=== PATIENT | female | born 1955 | race Caucasian/White ===

== ENCOUNTER 2020-04-26 09:43 | Emergency (ER) | payer MEDICARE, SELFPAY ==
--- NOTE | ~2020-04-26 | CT_ITS ---
EXAMINATION: CT abdomen pelvis w con EXAM DATE: 04/26/2020 11:40 INDICATION: Right lower abdominal pain, groin and hip pain. Right flank pain. Nausea and diarrhea. TECHNIQUE: Spiral CT of the abdomen and pelvis was performed following intravenous injection of 100 m L Omnipaque 350. Axial, coronal and sagittal images were reviewed. The dose-length product (DLP) fo r this examination was 236.66 mGy-cm. The exposure was tailored according to patient size (auto mA e xposure control), and iterative reconstruction (ASIR) was used as additional dose reduction technique . There is no prior study for comparison. FINDINGS: There is a left liver lobe medial varix, dilated mildly serpiginous space measuring about 2 cm in size, possibly with direct portal venous-middle hepatic vein connection. The liver, spleen, a drenal glands and pancreas are otherwise unremarkable. Gallbladder is unremarkable. No biliary obst ruction. Portal and splenic veins are patent. Kidneys enhance symmetrically. There is no hydroneph rosis. The uterus is unremarkable. The bladder is unremarkable. There is no retroperitoneal or p elvic lymphadenopathy. There is mild scattered arteriosclerotic disease. The appendix is not positively visualized. There is no pericecal inflammatory change to suggest appe ndicitis. There is mild scattered colonic diverticulosis. There is no adjacent inflammatory change t o suggest diverticulitis. The stomach and small bowel are unremarkable. There is expected amount of colonic stool. No free intraperitoneal gas. The heart is normal in size. There are no pericardia l or pleural effusions. There is 4 mm right lower lobe nodule on image #6. There are no osteoblasti c or osteolytic lesions identified. IMPRESSION: 1. No acute intra-abdominal findings. 2. Liver venous varix. 3. Mild colonic diverticulosis. 4. Right lower lobe 4 mm nodule statistically most likely granuloma; if patient has risk factor for lung cancer then 6-12 month follow-up low-dose chest CT recommended. Reviewed, dictated and finalized at location B. IMPRESSION: 1. No acute intra-abdominal findings. 2. Liver venous varix. 3. Mild colonic diverticulosis. 4. Right lower lobe 4 mm nodule statistically most likely granuloma; if patien t has risk factor for lung cancer then 6-12 month follow-up low-dose chest CT r ecommended.
--- NOTE | 2020-04-26 10:02 | ED.BACK ---
HPI - Back Pain/Injury General Chief Complaint: Abdominal Pain Stated Complaint: R hip pain, abd pain Time Seen by Provider: 04/26/20 10:02 Source: patient Mode of arrival: ambulatory Limitations: no limitations Related Data Home Medications Medication Instructions Recorded Confirmed fluoxetine 20 mg PO DAILY 04/26/20 04/26/20 levothyroxine 50 mcg PO DAILY 04/26/20 04/26/20 trazodone 25 mg PO HS 04/26/20 04/26/20 Allergies Allergy/AdvReac Type Severity Reaction Status Date / Time No Known Allergies Allergy Verified 04/26/20 10:14 Discharge Plan Discharge Prescriptions: No Action levothyroxine 50 mcg Tablet 50 mcg PO DAILY RF: 0 fluoxetine 20 mg Tablet 20 mg PO DAILY RF: 0 trazodone 50 mg Tablet 25 mg PO HS RF: 0
[2020-04-26 10:18] VITALS: BP 188/119; PULSE 84; RESP 16; TEMP 37.1; O2SAT 100
[2020-04-26] MEDS: ONDANSETRON HCL ODT 4 MG TABLET PO (10:31)
[2020-04-26 10:33] LABS: Basophils Absolute Auto 0.02 K/mm3 (0.00-0.10); Basophils Percent Auto 0.4 % (0.0-1.0); Eosinophils Absolute Auto 0.07 K/mm3 (0.02-0.50); Eosinophils Percent Auto 1.6 % (1.0-6.0); Hematocrit 37.8 % (35.0-42.0); Hemoglobin 12.8 g/dL (11.7-13.8); Immature Granulocyte Absolute 0.01 K/mm3 (0.00-0.00); Immature Granulocyte Percent A 0.2 % (0.0-0.0); Lymphocytes Absolute Auto 1.71 K/mm3 (1.10-4.50); Lymphocytes Percent Auto 38.1 % (18.0-42.0); Mean Corpuscular HGB Conc 33.9 g/dL (32.0-36.0); Mean Corpuscular Hemoglobin 32.5 pg (27.0-31.0); Mean Corpuscular Volume 95.9 fL (78.0-102.0); Mean Platelet Volume 9.7 fl (9.2-11.8); Monocytes Absolute Auto 0.38 K/mm3 (0.10-0.90); Monocytes Percent Auto 8.5 % (2.0-11.0); Neutrophils Absolute Auto 2.3 K/mm3 (1.7-7.2); Neutrophils Percent Auto 51.2 % (50.0-70.0); Platelet Count Result 220 K/mm3 (150-420); Red Blood Count 3.94 M/mm3 (4.20-5.40); Red Cell Distribution Width 12.3 % (11.6-14.4); White Blood Count 4.5 K/mm3 (4.8-10.8)
[2020-04-26 10:34] LABS: Add Urine Microscopic? NO; Appearance Urine Clear (Clear); Bilirubin Urine Negative (Negative); Blood Urine Negative (Negative); Color Urine Yellow (Yellow); Glucose Urine UA Negative (Negative); Ketones Urine Negative (Negative); Leukocyte Esterase Ur Negative (Negative); Nitrate Urine Negative (Negative); Protein Urine Negative (Negative); Specific Grav Ur 1.025 (1.010-1.020); Urobilinogen Urine 0.2 mg/dL (0.2-1.0)
[2020-04-26 10:45] LABS: Prothrombin Time 10.8 Seconds (9.64-11.0)
[2020-04-26 10:48] LABS: Alanine Aminotransferase 48 U/L (14-59); Albumin Level 3.9 g/dL (3.4-5.0); Alkaline Phosphatase 102 U/L (46-116); Anion Gap 9.9 mmol/L (7-16); Aspartate Amino Transferase 43 U/L (15-37); Bilirubin,Total 0.5 mg/dL (0.00-1.00); Blood Urea Nitrogen 14 mg/dL (7-18); Carbon Dioxide 31 mmol/L (21-32); Chloride 104 mmol/L (98-108); Estimated CRCL calculation 56 ml/min; Estimated Glomerular Filt Rate > 60; Glucose 84 mg/dL (70-99); Osmolality Calculated 291 mOsm/kg (285-295); Potassium 3.9 mmol/L (3.5-5.1); Sodium 141 mmol/L (136-145); Total Protein 7.1 g/dL (6.4-8.2)
[2020-04-26 10:51] LABS: Lactic Acid Reflex 1.3 mmol/L (0.4-2.0)
[2020-04-26] MEDS: HYDROMORPHONE HCL 2 MG/ML VIAL 0.25 MG IV PUSH (11:24)
--- NOTE | 2020-04-26 12:24 | ED.ABDPAIN ---
HPI - Abdominal Pain General Chief Complaint: Abdominal Pain Stated Complaint: R hip pain, abd pain Time Seen by Provider: 04/26/20 10:02 Source: patient Mode of arrival: ambulatory Limitations: no limitations History of Present Illness HPI narrative: 64-year-old woman comes in today complaining of right hip and lower abdominal pain that started 3 weeks ago. Patient states that today her pain is worse than usual. She states that she has been felt hot and cold as though she was fevers but when she checked her temperature was never over 100.2. She has some nausea, but no vomiting, anorexia, hematochezia, melena, diarrhea, dysuria, hematuria or trauma. She has had no sick exposures. she is status post appendectomy and has a history of urolithiasis. MD elicited complaint: abdominal pain Pertinent past history: kidney stones Onset (ago): week(s) (3) Pain Consistency: constant Location: RLQ, LLQ and pelvis Severity: moderate Radiation: other ( right hip and leg) Exacerbating factors: other ( palpation) Relieving factors: nothing Associated symptoms: nausea Treatments prior to arrival: NSAIDs Related Data Patient : No Home Medications Medication Instructions Recorded Confirmed fluoxetine 20 mg PO DAILY 04/26/20 04/26/20 levothyroxine 50 mcg PO DAILY 04/26/20 04/26/20 trazodone 25 mg PO HS 04/26/20 04/26/20 Allergies Allergy/AdvReac Type Severity Reaction Status Date / Time No Known Allergies Allergy Verified 04/26/20 10:14 Review of Systems Constitutional: Constitutional: Reports chills, Denies fever(s) and Denies weakness Eyes: Eyes: Denies change in vision ENT: Denies dysphagia, Denies nasal congestion and Denies sore throat Cardiovascular: Cardiovascular: Denies chest pain and Denies radiating jaw, neck or arm pain Respiratory: Respiratory: Denies cough, Denies dyspnea and Denies wheezing Gastrointestinal: Gastrointestinal: Reports as per HPI Genitourinary: Genitourinary: Denies hematuria, Denies nocturia and Denies dysuria Musculoskeletal: Musculoskeletal: Denies arthralgias and Denies joint swelling Integumentary/Breasts: Skin/Breast: Denies pruritus, Denies erythema and Reports rash ( rash for 2 years. Has painful lesion on right lower abdomen.) Neurologic: Reports vertigo, Reports dizziness and Reports syncope Endocrine: Endocrine: Denies polydipsia and Denies polyuria Hematologic/Lymphatic: Hematologic/Lymphatic: Denies easy bleeding and Denies easy bruising Allergic/Immunologic: Allergic/Immunologic: Denies lip swelling and Denies wheezing PMFSH Past Medical History Medical History Anxiety Chronic pruritic rash in adult Hypothyroidism Urolithiasis Surgical History Surgical History H/O left wrist surgery History of appendectomy History of x2 Social History Social History (Updated 04/26/20 @ 12:29 by Prasanth Bo MD) Smoking status: Never smoker Alcohol intake: never Substance use: never Living arrangements: with family Exam Const: General: healthy appearing and alert Orientation/consciousness: patient oriented x3 Limitations: no limitations Other: mild acute distress HENMT: Ears: external ears normal, TM's normal bilaterally and EAC's normal General nose exam: Normal nares present Mouth: Yes moist mucous membranes Throat: posterior oropharynx normal Eyes: Conjunctivae: conjunctivae normal Pupils: Equal, round and reactive pupils present EOM: EOMs intact bilaterally Neck: Neck: normal visual inspection and no lymphadenopathy Resp: Effort & Inspection: normal respiratory effort and not labored Auscultation: clear to auscultation bilaterally, no crackles, no rales and no rhonchi Cardio: Rate: regular rate Rhythm: regular rhythm Heart sounds: no murmurs GI: Inspection: non-distended GI Palp: Yes Soft to palpation, Yes
[2020-04-26 12:49] VITALS: BP 146/83; PULSE 93; RESP 16; O2SAT 99
== END 2020-04-26 12:50 | disposition home or self-care (01) ==
PROVIDERS: Emergency Provider Emergency Medicine
DX: S31.109A Unspecified open wound of abdominal wall, unspecified quadrant without penetration into peritoneal cavity, initial encounter (principal); R10.9 Unspecified abdominal pain; M25.551 Pain in right hip; E03.9 Hypothyroidism, unspecified
CPT/HCPCS: 36415; 74177; 80053; 81003; 83605; 85025; 85610; 85730; 87070; 87205; 96374; 99283; 99284; A9270; J1170; Q9965

== ENCOUNTER 2020-04-29 10:39 | Outpatient (CLI) | payer MEDICARE, SELFPAY ==
--- NOTE | ~2020-04-29 | XR_ITS ---
EXAMINATION: XR hip BI 2V w AP pelvis DATE: 04/29/2020 11:12 INDICATION: Dorsalgia and right groin pain TECHNIQUE: AP view the pelvis and two views of each hip were obtained. COMPARISON: None. FINDINGS: Bone alignment is normal. There is no fracture. Phleboliths are noted in the right pelvis. The soft tissues are otherwise unremarkable. IMPRESSION: 1. No acute osseous abnormality. Reviewed, dictated and finalized at location A.
--- NOTE | ~2020-04-29 | XR_ITS ---
EXAMINATION: XR sacroiliac joints min 3V INDICATION: Right groin pain TECHNIQUE: Three views of the sacroiliac joints are obtained. COMPARISON: CT, 04/26/2020 FINDINGS: Bone alignment is normal. There is no fracture. No abnormal sclerosis or erosion of the sac roiliac joints is identified. Phleboliths are noted in the right pelvis. IMPRESSION: 1. No acute osseous abnormality. Reviewed, dictated and finalized at location A.
[2020-04-29 11:17] LABS: CRP < 0.2 mg/dL (0.0-0.9)
[2020-04-29 11:31] LABS: Rheumatoid Factor Screen Negative (Negative)
[2020-04-29 11:56] LABS: Erythrocyte Sedimentation Rate 27 mm/hr (0-20)
[2020-05-02 10:50] LABS: Thyroid Stimulating Hormone Reflex 0.09 u/IU/mL (0.36-3.74)
[2020-05-02 21:19] LABS: ANA Cascade Screen Negative (Negative)
== END 2020-04-29 10:40 | disposition home or self-care (01) ==
PROVIDERS: PCP Family Medicine; Visit Provider Family Medicine
DX: M54.9 Dorsalgia, unspecified (principal)
CPT/HCPCS: 36415; 72202; 73521; 84439; 84443; 85652; 86038; 86140; 86430

== ENCOUNTER 2020-09-17 15:34 | Outpatient (CLI) | payer MEDICARE, SELFPAY ==
[2020-09-17 16:10] LABS: SARS-CoV-2 Ag Positive (Negative)
== END 2020-09-17 15:35 | disposition home or self-care (01) ==
LOC: CHSLAB 15:37
PROVIDERS: PCP Family Medicine; Visit Provider Family Medicine
DX: U07.1 COVID-19 (principal)
CPT/HCPCS: 87426

== ENCOUNTER 2020-12-31 08:59 | Outpatient (CLI) | payer MEDICARE, SELFPAY ==
[2020-12-31 10:40] LABS: Thyroid Stimulating Hormone Reflex 8.26 u/IU/mL (0.36-3.74)
[2020-12-31 11:04] LABS: Free T4 Free Thyroxine Reflex 0.87 ng/dL (0.76-1.46)
== END 2020-12-31 09:00 | disposition home or self-care (01) ==
LOC: CHSLAB 09:01
PROVIDERS: PCP Family Medicine; Visit Provider Family Medicine
DX: M81.0 Age-related osteoporosis without current pathological fracture (principal)
CPT/HCPCS: 36415; 84439; 84443

== ENCOUNTER 2021-01-01 09:36 | Outpatient (CLI) | payer MEDICARE, SELFPAY ==
--- NOTE | ~2021-01-01 | DEXA_ITS ---
Bone Density Report Name: Neyda Black Age: 65 Sex: Female Ethnicity: White Date of : 1955 Indication: hyperparathyroidism; prior fracture; Referring Provider: Bob Curran Study: Bone densitometry was performed. Exam Date: January 01, 2021 Accession number: [id number] Bone Density: Region BMD T-score Z-score Classification AP Spine(L1-L4) 0.701 -3.1 -1.3 Osteoporosis Femoral Neck (Left) 0.565 -2.6 -1.0 Osteoporosis Total Hip (Left) 0.650 -2.4 -1.1 Osteopenia Femoral Neck (Right) 0.532 -2.9 -1.3 Osteoporosis Total Hip (Right) 0.650 -2.4 -1.1 Osteopenia Femoral Neck Mean 0.548 -2.7 -1.1 Osteoporosis Total Hip Mean 0.650 -2.4 -1.1 Osteopenia World Health Organization criteria for BMD impression classify patients as: Normal (T-score at or above -1.0), Osteopenia (T-score between -1.0 and -2.5), or Osteoporosis (T-score at or below -2.5). 10-year Fracture Risk: FRAX not reported because: Some T-score for Spine Total or Hip Total or Femoral Neck at or below -2.5 Clinical Information Provided by Patient: Has had a low trauma fracture Has used the following medications: Vitamin D, Calcium Has the following medical conditions: Hyperparathyroidism Patient maximum height was 62 Menopause Age: 51 No regular weight bearing exercise Does not regularly consume dairy products Drinks caffeinated beverages Onset of menses at age 12 Number of children 3 Impression: The patient has established osteoporosis, based on the Total Spine T-score and the existence of a prior fracture. The patient has risk factors, including: previous fracture. Discussion: HIGH RISK OF FRACTURE. BONE DENSITY IS UNDESIRABLY LOW AT ONE OR MORE SKELETAL SITES, CONSISTENT WITH POSTMENOPAUSAL OSTEOPOROSIS. This patient's lowest T-score, in a patient who has previously fractured, meets the World Health Organization's (WHO) criteria for severe osteoporosis. In untreated patients, the risk of osteoporotic fracture increases approximately two-fold for each 1.0 SD decrease in T-score. Low bone density is not the only risk factor for fracture; also consider factors such as patient's age, frailty or poor health, risk of falling, risk of injury, previous osteoporotic fracture, family history of osteoporosis, cigarette smoking, low body weight, etc. Not everyone with low bone mineral density has osteoporosis; osteomalacia and other metabolic bone disorders should also be considered. Patients who have osteoporosis should be evaluated for specific diseases and conditions (secondary causes) that may cause or contribute to bone loss. The [place] [employer]ocrinologists (AACE) and National Osteoporosis Foundation (NOF) recommend pharmacologic intervention for all postmenopausal women whose T-score is in this rang
== END 2021-01-01 09:37 | disposition home or self-care (01) ==
LOC: CHSIMG 09:38
PROVIDERS: PCP Family Medicine; Visit Provider Family Medicine
DX: M81.0 Age-related osteoporosis without current pathological fracture (principal)
CPT/HCPCS: 77080

== ENCOUNTER 2021-02-10 13:06 | Outpatient (CLI) | payer MEDICARE, SELFPAY ==
--- NOTE | ~2021-02-10 | CT_ITS ---
EXAMINATION: CT abdomen pelvis wo con DATE: 02/10/2021 13:35 INDICATION: Right lower quadrant abdominal pain. TECHNIQUE: Computed tomography (CT) of the abdomen and pelvis was performed without intravenous contr ast. Automated exposure control and iterative reconstruction technique were employed. The dose-length product was 203.81 mGy-cm. COMPARISON: CT abdomen and pelvis 04/26/2020 FINDINGS: The visualized portions of the lung bases are clear without pneumonia or pleural effusion. The heart size is normal. No pericardial effusion. Again seen is a portacaval shunt in left hepatic l obe. The gallbladder, spleen, pancreas, adrenal glands, and left kidney are normal. There is a 5 mm c yst in right kidney. There is no urolithiasis. There is diverticulosis of the colon without evidence of diverticulitis. The appendix is not visualized. There are no pathologically enlarged lymph nodes. There is no free intraperitoneal fluid. There is moderate lower lumbar spondylosis. IMPRESSION: 1. No etiology for the patient's symptoms. 2. Portacaval shunt in left hepatic lobe. Reviewed, dictated and finalized at location A.
[2021-02-10 13:20] LABS: Hematocrit 40.9 % (35.0-42.0); Hemoglobin 13.5 g/dL (11.7-13.8); Mean Corpuscular Hemoglobin 32.1 pg (27.0-31.0); Mean Corpuscular Volume 97.4 fL (78.0-102.0); Mean Platelet Volume 9.3 fl (9.2-11.8); Platelet Count Result 233 K/mm3 (150-420); Red Cell Distribution Width 11.7 % (11.6-14.4); White Blood Count 5.8 K/mm3 (4.8-10.8)
[2021-02-10 14:30] LABS: Alanine Aminotransferase 27 U/L (14-59); Alkaline Phosphatase 86 U/L (46-116); Anion Gap 8 mmol/L (8-16); Aspartate Amino Transferase 26 U/L (15-37); Bilirubin,Total 0.6 mg/dL (0.00-1.00); Blood Urea Nitrogen 19 mg/dL (7-18); Calcium 9.1 mg/dL (8.5-10.1); Carbon Dioxide 29 mmol/L (21-32); Chloride 105 mmol/L (98-108); Estimated Glomerular Filt Rate > 60; Glucose 73 mg/dL (70-99); Osmolality Calculated 295 mOsm/kg (285-295); Potassium 4.4 mmol/L (3.5-5.1); Sodium 142 mmol/L (136-145); Total Protein 6.9 g/dL (6.4-8.2)
== END 2021-02-10 13:07 | disposition home or self-care (01) ==
LOC: CHSLAB 13:12
PROVIDERS: PCP Family Medicine; Visit Provider Family Medicine
DX: R10.9 Unspecified abdominal pain (principal)
CPT/HCPCS: 36415; 74176; 80053; 85027; 87086

== ENCOUNTER 2021-03-21 13:57 | Outpatient (CLI) | payer MEDICARE, SELFPAY ==
--- NOTE | ~2021-03-21 | XR_ITS ---
XR chest 2V DATE: 03/21/2021 14:37 INDICATION: Fever. Covid infection in September. TECHNIQUE: PA and lateral views COMPARISON: None FINDINGS: Normal heart size with left ventricular prominence. No hilar or mediastinal enlargement. No pulmonary infiltrate or consolidation, pleural effusion or pulmonary vascular congestion or pneumoth orax. Diffuse osteopenia. IMPRESSION: No active disease Osteopenia Reviewed, dictated and finalized at location B.
[2021-03-21 15:30] LABS: Erythrocyte Sedimentation Rate 30 mm/hr (0-20)
[2021-03-21 15:48] LABS: Rheumatoid Factor Screen Negative (Negative)
[2021-03-24 19:41] LABS: CRP, High Sensitivity 0.9 mg/L (***)
[2021-04-01 06:39] LABS: ANA Cascade Screen Negative (Negative)
== END 2021-03-21 13:58 | disposition home or self-care (01) ==
LOC: CHSIMG 14:01
PROVIDERS: PCP Family Medicine; Visit Provider Nurse Practitioner Family
DX: R50.9 Fever, unspecified (principal); M25.50 Pain in unspecified joint
CPT/HCPCS: 36415; 71046; 85652; 86038; 86141; 86430

== ENCOUNTER 2021-04-04 08:56 | Outpatient (CLI) | payer MEDICARE, SELFPAY ==
[2021-04-07 14:38] LABS: Lyme Disease Ab (IgM), Blot Negative (Negative); Lyme Disease Ab(IgG), Blot Negative (Negative)
== END 2021-04-04 08:57 | disposition home or self-care (01) ==
LOC: CHSLAB 08:58
PROVIDERS: PCP Family Medicine; Visit Provider Nurse Practitioner Family
DX: M25.50 Pain in unspecified joint (principal); R50.9 Fever, unspecified
CPT/HCPCS: 36415; 86617; 86666; 86757

== ENCOUNTER 2021-06-10 07:28 | Outpatient (CLI) | payer MEDICARE, SELFPAY ==
--- NOTE | 2021-06-10 | ECHO_ITS ---
Patient Info Name: Neyda Black Age: 65 years : 1955 Gender: Female Ht: 62 in Wt: 130 lbs BSA: 1.62 m2 HR: 67 bpm BP: 142 / 85 mmHg Heart Rhythm: Sinus Rhythm Exam Date: 06/10/2021 8:18 AM Exam Location: [facility] Patient Status: Outpatient Admit Date: 06/10/2021 Staff Ordering Physician: BLANQUITA BUTT Building Services Engineer: Marivel Hoffman RDCS Attending Provider: BLANQUITA BUTT Referring Physician: DAQUAN CROSS; Exam Type: CA echo doppler color flow Study Info Indications - FEVER OF UNKNOWN ORGIN Complete two-dimensional, color flow and Doppler transthoracic echocardiogram is performed. Summary 1. Complete two-dimensional, color flow and Doppler transthoracic echocardiogram is performed. 2. Left ventricular chamber dimension is normal. 3. Left ventricular systolic function is normal, estimated at 60-65%. 4. The left ventricular diastolic function is grade II diastolic dysfunction. 5. E/e' 12 is mildly elevated. 6. Left atrial chamber dimension is mildly enlarged. 7. There is trace tricuspid valve regurgitation. 8. No pulmonary hypertension, estimated pulmonary arterial systolic pressure is 24 mmHg. 9. There is trace pulmonic regurgitation. Left Ventricle E/e' 12 is mildly elevated. Left ventricular chamber dimension is normal. Left ventricular systolic function is normal, estimated at 60-65%. The left ventricular diastolic function is grade II diastolic dysfunction. Right Ventricle Right ventricular chamber dimension is normal. Right ventricular systolic function is normal. Left Atria Left atrial chamber dimension is mildly enlarged. Right Atria Right atrial chamber dimension is normal. Aortic Valve The aortic valve is trileaflet. There is no aortic valve stenosis. There is no aortic valve regurgitation. Pulmonic Valve There is trace pulmonic regurgitation. Mitral Valve There is no mitral valve stenosis. There is no mitral valve regurgitation. Tricuspid Valve There is trace tricuspid valve regurgitation. No pulmonary hypertension, estimated pulmonary arterial systolic pressure is 24 mmHg. Pericardium/Pleural There is no pericardial effusion. Inferior Vena Cava Normal inferior vena cava with >50% collapse upon inspiration consistent with normal right atrial pressure, 5 mmHg. Aorta The aortic root size at the sinus of Valsalva is normal. Left Ventricular Outflow Tract Name Value Normal LVOT 2D LVOT Diameter 1.8 cm LVOT Doppler LVOT Peak Gradient 4 mmHg LVOT Mean Gradient 2 mmHg LVOT VTI 22 cm LVOT VTI/AV VTI Ratio 0.8 LVOT Stroke Volume 58 ml LVOT CO 3.2 l/min LVOT CI 2.0 l/min/m2 Pulmonic Valve Name Value Normal RVOT Doppler
== END 2021-06-10 07:29 | disposition home or self-care (01) ==
PROVIDERS: PCP Family Medicine
DX: R50.9 Fever, unspecified (principal)
CPT/HCPCS: 93306

== ENCOUNTER 2021-06-18 13:53 | Outpatient (CLI) | payer MEDICARE, SELFPAY ==
--- NOTE | ~2021-06-18 | MM_ITS ---
EXAMINATION: MM screening antione BI w tabby HISTORY: Screening mammogram, family history of breast cancer in her mother and sister. TECHNIQUE: Craniocaudal and mediolateral oblique 3-D tomosynthesis images were obtained and synthetic 2-D images were generated. CAD analysis was submitted and interpreted. COMPARISON: No prior mammogram is available for comparison at this institution. BREAST PARENCHYMAL COMPOSITION: There are scattered areas of fibroglandular density. FINDINGS: RIGHT BREAST: There is no evidence of suspicious mass, calcification, or architectural distortion to suggest malignancy. LEFT BREAST: An asymmetry is present in the middle third of the outer breast on the craniocaudal view . IMPRESSION: 1. Left breast asymmetry which may represent the patient's baseline however no comparison is currentl y available. 2. Comparison with prior mammograms is necessary. BI-RADS Category 0: Incomplete: Needs comparison with prior mammograms. Reviewed, dictated and finalized at location A. IMPRESSION: 1. Left breast asymmetry which may represent the patient's baseline however no comparison is currently available. 2. Comparison with prior mammograms is necessary. BI-RADS Category 0: Incomplete: Needs comparison with prior mammograms.
== END 2021-06-18 13:54 | disposition home or self-care (01) ==
LOC: CHSIMG 13:55 → CHSLAB 15:48
PROVIDERS: PCP Nurse Practitioner Family; Visit Provider Nurse Practitioner Family
DX: Z12.31 Encounter for screening mammogram for malignant neoplasm of breast (principal); Z12.4 Encounter for screening for malignant neoplasm of cervix
CPT/HCPCS: 77063; 77067; 87624; 88175; G0145

== ENCOUNTER 2021-07-08 08:35 | Outpatient (CLI) | payer MEDICARE, SELFPAY ==
[2021-07-08 10:14] LABS: Cholesterol 198 mg/dL (0-200); HDL Direct 81 mg/dL; Triglycerides 52 mg/dL (<150)
[2021-07-08 10:24] LABS: LDL Cholesterol Direct 82 mg/dL
== END 2021-07-08 08:36 | disposition home or self-care (01) ==
PROVIDERS: PCP Nurse Practitioner Family; Referring Provider Internal Medicine Cardiovascular Disease; Visit Provider Nurse Practitioner Family
DX: I51.9 Heart disease, unspecified (principal); E03.9 Hypothyroidism, unspecified
CPT/HCPCS: 36415; 80061; 84443

== ENCOUNTER → 2021-07-12 01:41 | Outpatient (CLI) | payer MEDICARE, SELFPAY ==
[2021-07-12 19:28] LABS: SARS-CoV-2 RNA PCR Negative
== END ==
PROVIDERS: PCP Nurse Practitioner Family; Visit Provider Internal Medicine Gastroenterology
DX: Z01.812 Encounter for preprocedural laboratory examination (principal); Z20.822 Contact with and (suspected) exposure to COVID-19
CPT/HCPCS: C9803; U0003; U0005

== ENCOUNTER 2021-07-16 00:59 | Day surgery (SDC) | payer MEDICARE, SELFPAY ==
[2021-07-03 14:14] VITALS: BMI 23.6
--- NOTE | 2021-07-16 07:23 | WPDANESEPPF ---
Anes - Initial Pre Proc Eval Procedure: Operation Date: 07/16/21 11:15 Proposed Procedures p Screening Colonoscopy - Jaison Cassidy MD Date/Time: 07/16/21 07:23 Surgeon: Jaison Cassidy MD Pre Op Diagnosis: neoplasm screening Patient Data Age: 66 Gender: F Height: 1.57 m Weight: 58.5 kg Allergies Allergy/AdvReac Type Severity Reaction Status Date / Time No Known Allergies Allergy Verified 07/16/21 10:12 Home Medications Medication Instructions Recorded Confirmed Type fluoxetine 20 mg capsule 20 mg PO DAILY #90 cap 12/31/20 07/03/21 Rx trazodone 50 mg tablet 25 mg PO HS #60 tablet 12/31/20 07/03/21 Rx levothyroxine 50 mcg tablet See Rx Instructions .ROUTE 06/30/21 07/03/21 Rx .COMPLEX #90 tablet Patient hx anesthesia problems: none Family hx anesthesia problems: none PMFSH Past Medical History Medical History (Updated 07/16/21 @ 07:25 by Darío Rodriguez DO) Anxiety Chronic pruritic rash in adult Depression Grade II diastolic dysfunction Hypothyroidism Screening for breast cancer TIA (transient ischemic attack) Urolithiasis Surgical History Surgical History (Updated 07/16/21 @ 07:25 by Darío Rodriguez DO) H/O left wrist surgery History of appendectomy History of x2 History of tubal ligation Social History Social History Smoking status: Never smoker Alcohol intake: never Substance use: never Substance use type: does not use Living arrangements: with family Gender identity (if verbalized by the patient): Female Spiritual care concerns: No Anes - Eval Final PreProcedure Day of Procedure 07/16/21 07:23 Patient weight: normal Heart: regular rate and rhythm Lungs: clear to auscultation and normal air movement Airway: Mallampati scale class II Neurological: alert and oriented Last oral intake: >/= 8 hours ASA classification: III Emergent: no Anesthetic plan: proceed Anesthesia type and monitoring: general GIVS and standard monitoring Informed Consent: The patient's anesthetic plan and its attendant risks and benefits were discussed with the patient/family/POA. Questions were solicited and answers provided to the satisfaction of the patient/family/POA.
[2021-07-16 10:13] VITALS: BP 148/81; PULSE 70; RESP 16; TEMP 36.4; O2SAT 100; BMI 22.8
[2021-07-16] MEDS: LACTATED RINGERS 1,000 ML 150 ML IV CONT (10:22)
--- NOTE | 2021-07-16 11:03 | PM.HPGS ---
History of Present Illness History of Present Illness Consent: Risks, benefits, and alternatives have been discussed and questions answered. Patient agrees to proceed with procedure. Chief complaint: neoplasm screening Narrative: Neyda Black is a 66 year old female here for screening colonoscopy, last one 5 years ago. Review of Systems Constitutional: Constitutional: Denies headache(s) and Denies weakness Eyes: Eyes: Denies blurry vision ENT: Reports Normal hearing present, Denies headache(s) and Denies neck pain Cardiovascular: Cardiovascular: Denies chest pain and Denies dyspnea Respiratory: Respiratory: Denies dyspnea Gastrointestinal: Gastrointestinal: Reports no additional gastrointestinal complaints Genitourinary: Genitourinary: Denies dysuria Musculoskeletal: Musculoskeletal: Denies neck pain Integumentary/Breasts: Skin/Breast: Denies dry skin Neurologic: Reports Normal hearing present, Denies headache(s) and Denies weakness Psychiatric: Psychiatric: Denies anxiety Endocrine: Endocrine: Denies change in body appearance Hematologic/Lymphatic: Hematologic/Lymphatic: Denies easy bleeding Allergic/Immunologic: Allergic/Immunologic: Denies urticaria PMFSH Past Medical History Medical History (Updated 07/16/21 @ 11:04 by Jaison Cassidy MD) Anxiety Chronic pruritic rash in adult Colon cancer screening Depression Grade II diastolic dysfunction Hypothyroidism Screening for breast cancer TIA (transient ischemic attack) Urolithiasis Surgical History Surgical History (Updated 07/16/21 @ 07:25 by Darío Rodriguez DO) H/O left wrist surgery History of appendectomy History of x2 History of tubal ligation Social History Social History Smoking status: Never smoker Alcohol intake: never Substance use: never Substance use type: does not use Living arrangements: with family Gender identity (if verbalized by the patient): Female Spiritual care concerns: No Meds Home Medications and Allergies Home Medications Medication Instructions Recorded Confirmed Type fluoxetine 20 mg capsule 20 mg PO DAILY #90 cap 12/31/20 07/03/21 Rx trazodone 50 mg tablet 25 mg PO HS #60 tablet 12/31/20 07/03/21 Rx levothyroxine 50 mcg tablet See Rx Instructions .ROUTE 06/30/21 07/03/21 Rx .COMPLEX #90 tablet Allergies Allergy/AdvReac Type Severity Reaction Status Date / Time No Known Allergies Allergy Verified 07/16/21 10:12 Vital Signs Vital Signs - 24 hr 07/16/21 10:13 Temperature 97.5 F L Pulse Rate 70 Respiratory Rate 16 Blood Pressure 148/81 H Pulse Oximetry 100 Exam Const: General: comfortable and no acute distress HENMT: General nose exam: Normal nares present Eyes: General: appearance normal, both eyes and all related structures Neck: Neck: no JVD Resp: Auscultation: clear to auscultation bilaterally Cardio: Rate: regular rate Rhythm: regular rhythm GI: Inspection: non-distended GI Palp: Yes Soft to palpation Skin: General skin exam: normal color Neuro: General: gait normal Speech: normal speech Extrem: General: normal to inspection Psych: Mental Status: mental status grossly normal Assessment and Plan Assessment and plan (1) Colon cancer screening: Code(s): Z12.11 - Encounter for screening for malignant neoplasm of colon Status: Acute Assessment and Plan: colonoscopy
[2021-07-16 11:27] VITALS: BP 107/65; PULSE 77; RESP 18; O2SAT 100
[2021-07-16 11:37] VITALS: BP 122/69; PULSE 65; RESP 16; O2SAT 99
[2021-07-16 11:47] VITALS: BP 132/67; PULSE 58; RESP 14; O2SAT 100
== END 2021-07-16 12:00 | disposition home or self-care (01) ==
PROVIDERS: PCP Nurse Practitioner Family; Visit Provider Internal Medicine Gastroenterology
PROC: 0DJD8ZZ Inspection of Lower Intestinal Tract, Via Natural or Artificial Opening Endoscopic (ICD-10-PCS; CPT 45378; principal; 2021-07-16 11:15)
DX: Z12.11 Encounter for screening for malignant neoplasm of colon (principal); K57.30 Diverticulosis of large intestine without perforation or abscess without bleeding; K64.8 Other hemorrhoids; K64.4 Residual hemorrhoidal skin tags; I51.89 Other ill-defined heart diseases; E03.9 Hypothyroidism, unspecified; Z86.73 Personal history of transient ischemic attack (TIA), and cerebral infarction without residual deficits; F41.8 Other specified anxiety disorders
CPT/HCPCS: G0121; J2001; J2704; J7120

== ENCOUNTER 2021-07-18 10:04 | Outpatient (CLI) | payer MEDICARE, SELFPAY ==
--- NOTE | 2021-07-18 10:08 | EST_ITS ---
Patient Info Name: Neyda Black Age: 66 years : 1955 Gender: Female Ht: 62 in Wt: 124 lbs BSA: 1.57 m2 Exam Date: 07/18/2021 10:16 AM Exam Location: [facility] Stress Patient Status: Outpatient Admit Date: 07/18/2021 Staff Ordering Physician: Jamaal Gupta DO Attending Provider: Jamaal Gupta DO Exercise Technologist: Carolina Hrady RDCS Exercise Physician: Jamaal Gupta DO Exam Type: CA stress test treadmill Study Info Indications R07.9 - Chest pain, unspecified A treadmill exercise stress test was performed. Summary 1. 1. Negative Esvin exercise stress test for ischemic ST changes by ECG criteria. 2. 2. Reduced functional capacity, achieving 4.7 METs of workload. 3. 3. Rapid HR response to exercise. 4. 4. Appropriate HR recovery at 1 minute post exercise. 5. 5. Hypertensive response to exercise. 6. 6. No imaging with stress testing. 7. 7. Patient informed of the above results. Protocol: Esvin Stress ECG Details Stage: REST Duration (min): 7 min : 15 sec Speed (mph): 0.0 Grade (%): 0 HR (bpm): 64 SBP (mmHg): 135 DBP (mmHg): 83 METS: --- Stage: REST Duration (min): 11 min : 1 sec Speed (mph): 0.0 Grade (%): 0 HR (bpm): 71 SBP (mmHg): 135 DBP (mmHg): 83 METS: --- Stage: STAGE 1 Duration (min): 1 min : 0 sec Speed (mph): 1.7 Grade (%): 10 HR (bpm): 111 SBP (mmHg): 135 DBP (mmHg): 83 METS: --- Stage: STAGE 1 Duration (min): 2 min : 0 sec Speed (mph): 1.7 Grade (%): 10 HR (bpm): 135 SBP (mmHg): 135 DBP (mmHg): 83 METS: --- Stage: STAGE 1 Duration (min): 3 min : 0 sec Speed (mph): 1.7 Grade (%): 10 HR (bpm): 149 SBP (mmHg): 135 DBP (mmHg): 83 METS: --- Stage: STAGE 2 Duration (min): 0 min : 7 sec Speed (mph): 2.5 Grade (%): 12 HR (bpm): 149 SBP (mmHg): 135 DBP (mmHg): 83 METS: --- Stage: RECOVERY Duration (min): 0 min : 52 sec Speed (mph): 0.0 Grade (%): 0 HR (bpm): 123 SBP (mmHg): 135 DBP (mmHg): 83 METS: --- Stage: RECOVERY Duration (min): 1 min : 52 sec Speed (mph): 0.0 Grade (%): 0 HR (bpm): 95 SBP (mmHg): 213 DBP (mmHg): 92 METS: --- Stage: RECOVERY Duration (min): 2 min : 52 sec Speed (mph): 0.0 Grade (%): 0 HR (bpm): 84 SBP (mmHg): 181 DBP (mmHg): 93 METS: --- Stage: RECOVERY Duration (min): 3 min : 52 sec Speed (mph): 0.0 Grade (%): 0 HR (bpm): 75 SBP (mmHg): 181 DBP (mmHg): 93 METS: --- Stage: RECOVERY Duration (min): 4 min : 52 sec Speed (mph): 0.0 Grade (%): 0 HR (bpm): 78 SBP (mmHg): 165 DBP (mmHg): 91 METS: --- Stage: RECOVERY Duration (min): 5 min : 52 sec Speed (mph): 0.0 Grade (%): 0 HR (bpm): 82 SBP (mmHg): 165 DBP (mmHg): 91 METS: --- Stage: RECOVERY Duration
== END 2021-07-18 10:05 | disposition home or self-care (01) ==
LOC: ANHCARD 10:07
PROVIDERS: PCP Nurse Practitioner Family; Visit Provider Internal Medicine Cardiovascular Disease
DX: R07.9 Chest pain, unspecified (principal)
CPT/HCPCS: 93017

== ENCOUNTER 2021-09-30 10:22 | Outpatient (CLI) | payer MEDICARE, SELFPAY | END 2021-09-30 10:23 | disposition home or self-care (01) | LOC: ANHSURGERY 10:26 | PROVIDERS: PCP Nurse Practitioner Family; Visit Provider Urology | DX: Z01.818 Encounter for other preprocedural examination (principal); N36.8 Other specified disorders of urethra | CPT/HCPCS: 87086 ==

== ENCOUNTER → 2021-10-03 01:57 | Outpatient (CLI) | payer MEDICARE, SELFPAY ==
[2021-10-03 17:54] LABS: SARS-CoV-2 RNA PCR Negative
== END ==
PROVIDERS: PCP Nurse Practitioner Family; Visit Provider Urology
DX: Z01.812 Encounter for preprocedural laboratory examination (principal); Z20.822 Contact with and (suspected) exposure to COVID-19
CPT/HCPCS: C9803; U0003; U0005

== ENCOUNTER 2021-10-06 02:16 | Day surgery (SDC) | payer MEDICARE, SELFPAY ==
--- NOTE | 2021-09-22 12:11 | PC.NURSE ---
Report to the Outpatient Waiting Room, entrance under the green pavilion located off [facility], at time _1000 on date _10/06/21 . OR Time: __1200 . - You and your visitor will be asked a series of questions to screen for COVID 19 for your protection. - A mask is required within the hospital. - Only one visitor is allowed at this time. Patient visitors will be guided where to wait when not with patient. Preoperative COVID Testing Requirements: No COVID Test needed if: (proof is required; if not received patient will have Rapid Test prior to entry) - Patient has received COVID Vaccine at least 14 days prior to procedure date or - Patient has positive COVID test result within last 90 days of surgery date. COVID TESTING 10/03/21 AT 0855 COVID Test needed if above criteria is not met If not COVID vaccinated a COVID test must be conducted within 72 hours of surgery and patient is asked to isolate self from time of testing until procedure. You will go to the [facility] for your COVID testing. The [facility] site is located at the corner of [address] [facility]. You will only be called if COVID results are positive and your surgeon may reschedule your elective surgery date. Patients may have clear liquids (water, carbonated beverages, clear teas, apple juice) until 3 hours prior to surgery with a maximum of 20 ounces. - No food from midnight until time of surgery - Infants may have breast milk until 4 hours before surgery, formula 6 hours prior to surgery. - Children will be allowed to drink immediately following surgery. If applicable, please bring a bottle or sippy cup to assist with drinking. Juice, water, soda, and popsicles are readily available. For infants on formula, please bring formula the day of surgery. Pacifiers are allowed. Take the following medications with a SIP of water the morning of surgery: __FLUOXETINE,LEVOTHYROXINE Medications to discontinue per physician NONE Date to take last dose Please no make-up, nail arabic, hairspray, perfume, deodorant, or body powder the day of surgery. No jewelry (including any body piercings) or valuables the day of surgery, leave them at home. Please take a shower or bath the night before, or the morning of, surgery with an antibacterial soap. Wear comfortable, loose fitting clothing. Children are encouraged to wear pajamas. - Jewelry must be removed prior to entering the operating room. Rings and piercings that are not removed may be cut off. - The hospital will not accept responsibility for valuables. - Please leave all valuables, including medications, at home the day of surgery. If you are going home after surgery, a licensed substitute bus driver must drive you home. - NO public transportation without another adult. - We recommend that an adult stay with you for 24 hours following discharge. - We also recommend that you do not drive, make important decision, drink alcoholic beverages, or take any drugs that were not prescribed by your health care provider for at least 24 hours after your discharge time. For Pediatric surgeries, we recommend two adults accompany the child home (only one inside the building at this time). Follow any additional instructions given to you from your surgeon. Telephone instructions given to _PATIENT and asked if any additional questions and then verbalized understanding. Patient advised to call surgeon office or pre surgery nurse liaison [phone] if any additional questions.
[2021-09-22 12:12] VITALS: BMI 23.4
--- NOTE | 2021-10-03 08:55 | PM.IMHP ---
H&P: HPI History of Present Illness Date/Time: 10/03/21 08:55 66-year-old female with prolapse urethral mucosa which has become bothersome for her Chief Complaint: Urethral prolapse Review of Systems Review of Systems: All systems reviewed & are unremarkable except as noted in HPI and below PMFSH Past Medical History Medical History Anxiety Chronic pruritic rash in adult Colon cancer screening Depression Grade II diastolic dysfunction Hypothyroidism Screening for breast cancer TIA (transient ischemic attack) Urolithiasis Surgical History Surgical History H/O left wrist surgery History of appendectomy History of x2 History of tubal ligation Social History Social History Smoking status: Never smoker Alcohol intake: never Substance use: never Substance use type: does not use Gender identity (if verbalized by the patient): Female Spiritual care concerns: No Meds Home Medications and Allergies Home Medications Medication Instructions Recorded Confirmed Type fluoxetine 40 mg capsule 40 mg PO DAILY #90 cap 08/15/21 10/02/21 Rx docusate sodium [Stool Softener] 100 mg PO HS 09/22/21 10/02/21 History levothyroxine 50 mcg tablet See Rx Instructions .ROUTE 09/26/21 10/02/21 Rx .COMPLEX #90 tablet trazodone 50 mg tablet See Rx Instructions .ROUTE 09/26/21 10/02/21 Rx .COMPLEX #45 tablet amlodipine 2.5 mg tablet 2.5 mg PO DAILY #30 tablet 10/02/21 10/02/21 Rx Allergies Allergy/AdvReac Type Severity Reaction Status Date / Time No Known Allergies Allergy Verified 10/02/21 10:30 Exam Narrative: Circumferential prolapsed urethral mucosa Assessment and Plan Assessment and plan (1) Urethral prolapse: Code(s): N36.8 - Other specified disorders of urethra Status: Acute Assessment and Plan: Excision of the above
[2021-10-06] VITALS (10 sets, daily range): BP systolic 139–161; BP diastolic 55–84; PULSE 54–67; RESP 10–16; TEMP 36.9–37.1; O2SAT 98–100; BMI 23.3
--- NOTE | 2021-10-06 07:24 | WPDHPUPDATE1 ---
History and Physical Update Update Date/Time: 10/06/21 07:24 History and Physical has been reviewed, including an updated exam of the patient. There are NO changes in the patient's condition. Risks, benefits, and alternatives have been discussed and questions answered. Patient agrees to proceed with procedure.
[2021-10-06] MEDS: LACTATED RINGERS 1,000 ML 30 ML IV CONT (10:35)
--- NOTE | 2021-10-06 10:36 | WPDHPUPDATE1 ---
History and Physical Update Update Date/Time: 10/06/21 10:36 History and Physical has been reviewed, including an updated exam of the patient. There are NO changes in the patient's condition. Risks, benefits, and alternatives have been discussed and questions answered. Patient agrees to proceed with procedure.
--- NOTE | 2021-10-06 11:21 | WPDANESEPPF ---
Anes - Initial Pre Proc Eval Procedure: Operation Date: 10/06/21 12:00 Proposed Procedures p Excision Urethral Prolapse/Polyp - Addy Mensah MD Date/Time: 10/06/21 11:21 Surgeon: Addy Mensah MD Pre Op Diagnosis: prolapse urethral mucosa Patient Data Age: 66 Gender: F Height: 1.57 m Weight: 58 kg Last Vital Signs Temp 36.9 C 10/06/21 10:19 Pulse 66 10/06/21 10:19 Resp 16 10/06/21 10:19 BP 144/64 H 10/06/21 10:19 Pulse Ox 99 10/06/21 10:19 Allergies Allergy/AdvReac Type Severity Reaction Status Date / Time No Known Allergies Allergy Verified 10/06/21 10:08 Home Medications Medication Instructions Recorded Confirmed Type fluoxetine 40 mg capsule 40 mg PO DAILY #90 cap 08/15/21 10/06/21 Rx docusate sodium [Stool Softener] 100 mg PO HS 09/22/21 10/06/21 History levothyroxine 50 mcg tablet See Rx Instructions .ROUTE 09/26/21 10/02/21 Rx .COMPLEX #90 tablet trazodone 50 mg tablet See Rx Instructions .ROUTE 09/26/21 10/02/21 Rx .COMPLEX #45 tablet amlodipine 2.5 mg tablet 2.5 mg PO DAILY #30 tablet 10/02/21 10/06/21 Rx Patient hx anesthesia problems: none Family hx anesthesia problems: none Results Review: All pre-operative results and documents have been reviewed as part of the pre-operative evaluation. [facility] Past Medical History Medical History Anxiety Chronic pruritic rash in adult Colon cancer screening Depression Grade II diastolic dysfunction Hypothyroidism Screening for breast cancer TIA (transient ischemic attack) Urolithiasis Surgical History Surgical History H/O left wrist surgery History of appendectomy History of x2 History of tubal ligation Social History Social History Smoking status: Never smoker Alcohol intake: never Substance use: never Substance use type: does not use Living arrangements: alone Gender identity (if verbalized by the patient): Female Spiritual care concerns: No Anes - Eval Final PreProcedure Day of Procedure 10/06/21 11:21 Patient weight: normal Heart: regular rate and rhythm Lungs: clear to auscultation Airway: Mallampati scale class II Neurological: alert and oriented Last oral intake: >/= 8 hours ASA classification: III Emergent: no Anesthetic plan: proceed Anesthesia type and monitoring: general LMA and standard monitoring Results Review: All pre-operative results and documents have been reviewed as part of the pre-operative evaluation. Informed Consent: The patient's anesthetic plan and its attendant risks and benefits were discussed with the patient/family/POA. Questions were solicited and answers provided to the satisfaction of the patient/family/POA.
[2021-10-06] MEDS: ceFAZolin 2 GM/D5W 50 ML 2 GM/50 ML BAG IVPB (11:38)
--- NOTE | 2021-10-06 12:20 | W.PM.PROC2 ---
Procedure Note - Detailed Date of Procedure 10/06/21 Pre-op Diagnosis prolapse urethral mucosa Post-op Diagnosis same Procedure Performed Excision of prolapsed urethral mucosa Surgeon Addy Mensah MD Anesthesia general Indications This is a woman with prolapsed urethral mucosa. She is here today for excision. She understands risks of bleeding, infection, damage to urethra, recurrence. She agrees to proceed Findings Circumferential prolapsed urethral mucosa Description of Procedure She was correctly identified. Informed consent obtained. She from the operating room. She was given general anesthesia. She was prepped and draped in the dorsal thigh position. She was given appropriate perioperative antibiotics. A time-out performed. I placed South catheter. I grasped the urethral prolapse with an Allis clamp. She had a circumferential urethral prolapse. I excised the urethral prolapse. I then reapproximated the urethral mucosa to the vaginal mucosa. I did this in a combination of interrupted and running 4-0 chromic stitches. There was good apposition. There was good hemostasis. South catheter is removed. She was awakened transferred to PACU in stable condition. Estimated Blood Loss 5 Drains No Packing No Pathology yes (Prolapsed urethral mucosa) Complications No immediate complications Condition stable Disposition PACU
[2021-10-06] MEDS: oxyCODONE HCL (*CRX) 5 MG TAB IR PO (13:50)
== END 2021-10-06 14:17 | disposition home or self-care (01) ==
PROVIDERS: PCP Nurse Practitioner Family; Visit Provider Urology
PROC: (CPT 53275; principal; 2021-10-06 12:00)
DX: N81.0 Urethrocele (principal); I51.89 Other ill-defined heart diseases; E03.9 Hypothyroidism, unspecified; F41.8 Other specified anxiety disorders; Z86.73 Personal history of transient ischemic attack (TIA), and cerebral infarction without residual deficits
CPT/HCPCS: 57230; 88305; A9270; J0690; J1100; J2250; J2405; J2704; J7120

== ENCOUNTER 2022-06-27 11:11 | Emergency (ER) | payer MEDICARE, SELFPAY ==
--- NOTE | ~2022-06-27 | XR_ITS ---
EXAMINATION: XR foot LT min 3V DATE: 06/27/2022 12:03 INDICATION: Left foot swelling TECHNIQUE: Dorsoplantar, lateral, and 2 oblique views of the left foot were obtained. COMPARISON: None. FINDINGS: There is a questionable subtle heterotopic ossification projecting lateral to the calcaneus . There is marked soft tissue swelling of the dorsal foot. Bone alignment is normal. There is mild os teoarthritis of multiple interphalangeal joints. IMPRESSION: 1. Possible avulsion fracture at the lateral aspect of the calcaneus. Reviewed, dictated and finalized at location A.
--- NOTE | ~2022-06-27 | XR_ITS ---
EXAMINATION: XR ankle LT min 3V DATE: 06/27/2022 11:33 INDICATION: Left ankle pain TECHNIQUE: Anteroposterior, lateral, mortise, and additional oblique view of the ankle were obtained. COMPARISON: None. FINDINGS: There is no fracture, dislocation, or subluxation. The bones, soft tissues, and joint space s are normal. IMPRESSION: 1. No acute osseous abnormality. Reviewed, dictated and finalized at location A.
--- NOTE | ~2022-06-27 | CT_ITS ---
EXAMINATION: CT heel LT wo con DATE: 06/27/2022 12:49 INDICATION: Left foot pain TECHNIQUE: Computed tomography (CT) of the left calcaneus was performed without intravenous contrast. The dose-length product (DLP) was 273.53 mGy-cm. Automated exposure control and iterative reconstruc tion technique were employed. COMPARISON: None FINDINGS: There is an avulsion fracture at the anterolateral aspect of the anterior process of the ca lcaneus. There is a nondisplaced, oblique fracture at the medial margin of the navicular. There is a nondisplaced linear fracture at the superolateral margin of the talar neck. Soft tissue swelling surr ounds the fractures. No definite additional fracture is identified. IMPRESSION: 1. Acute nondisplaced fractures of the anterior process of the calcaneus, the medial navicular, and t he superolateral margin of the talar neck. Reviewed, dictated and finalized at location A. IMPRESSION: 1. Acute nondisplaced fractures of the anterior process of the calcaneus, the m edial navicular, and the superolateral margin of the talar neck.
[2022-06-27 11:11] VITALS: BP 132/59; PULSE 79; RESP 20; TEMP 36.8; O2SAT 100
--- NOTE | 2022-06-27 11:50 | ED.LOWEXIN ---
HPI - Extremity Injury (Lower) General Chief Complaint: Extremity Injury, Lower Stated Complaint: left ankle injury Time Seen by Provider: 06/27/22 11:15 History of Present Illness HPI Narrative: Patient is a 66-year-old female here for evaluation of left ankle pain and swelling after landing on it in eversion earlier today. Patient states that she has had pain and swelling ever since, which she has taken a few steps. Has not attempted any medication for pain just yet. Denies any numbness or tingling in her foot or decreased range of motion. Denies further injury sustained in the fall. Related Data Home Medications Medication Instructions Recorded Confirmed docusate sodium 100 mg capsule 100 mg PO HS 09/22/21 03/27/22 (Stool Softener) Allergies Allergy/AdvReac Type Severity Reaction Status Date / Time No Known Allergies Allergy Verified 03/27/22 13:52 Review of Systems Review of Systems: Gen: Denies fevers or chills Eyes: Denies eye pain or visual change ENT: Denies congestion Respiratory: Denies shortness of breath or cough CV: Denies chest pain or palpitations GI: Denies abdominal pain nausea, emesis or diarrhea : denies burning, urgency, frequency or hematuria Musculoskeletal: Reports right ankle pain and swelling. Neuro: Denies numbness, tingling, weakness or focal weakness Skin: Denies rash Except as documented, all other systems reviewed and negative PMFSH Past Medical History Medical History Anxiety Chronic pruritic rash in adult Colon cancer screening Depression Grade II diastolic dysfunction Hypothyroidism Screening for breast cancer TIA (transient ischemic attack) Urolithiasis Surgical History Surgical History H/O left wrist surgery History of appendectomy History of x2 History of tubal ligation Social History Social History Smoking status: Never smoker Alcohol intake: never Substance use: never Substance use type: does not use Gender identity (if verbalized by the patient): Female Sexual Orientation (if Verbalized by the Patient): Straight or Heterosexual Spiritual care concerns: No Exam Narrative: Gen: alert, oriented, in wheelchair Eyes: EOMI, no icterus Pulm: Respirations even and unlabored, symmetric thorax expansion, no audible stridor or visible cyanosis CV: Strong 2+ DP and PT pulses bilaterally. GI: No distension, no voluntary/involuntary guarding Neuro: AOx4, moves all extremities without apparent difficulty or weakness, follows commands Skin: No jaundice, no visible bruising, rashes, lesions or wounds on exposed skin MSK: left foot with bruising and swelling over the left lateral aspect, bony tenderness under area of deformity. Full range of motion in foot. Compartments are soft. Psych: Normal mood/affect, insight/judgement good, adequate fund of knowledge, recent/remote memory intact Course Vital Signs Vital signs: Vital Signs Temperature 98.3 F 06/27/22 11:11 Pulse Rate 79 06/27/22 11:11 Respiratory Rate 20 06/27/22 11:11 Blood Pressure 132/59 L 06/27/22 11:11 Pulse Oximetry 100 06/27/22 11:11 Oxygen Delivery Room Air 06/27/22 11:11 Temperature 98.3 F 06/27/22 11:11 Pulse Rate 79 06/27/22 11:11 Respiratory Rate 20 06/27/22 11:11 Blood Pressure 132/59 L 06/27/22 11:11 Pulse Oximetry 100 06/27/22 11:11 Oxygen Delivery Room Air 06/27/22 11:11 MDM - Extremity Injury (Lower) MDM Narrative Medical decision making narrative: 66-year-old female here for evaluation of left lateral foot pain after he began eversion, with obvious deformity over area of pain. He is neurovascular intact distal to area of pain. Obtained a CT of the calcaneus given high suspicion for fracture after plain films were negative, which revealed a
[2022-06-27] MEDS: IBUPROFEN 400 MG TABLET 800 MG PO (11:54)
[2022-06-27] MEDS: ACETAMINOPHEN 325 MG TABLET 650 MG PO (11:54)
--- NOTE | 2022-06-27 15:36 | PC.NURSE ---
Splint applied to right leg.
== END 2022-06-27 15:36 | disposition home or self-care (01) ==
PROVIDERS: Emergency Provider Emergency Medicine; PCP Nurse Practitioner Family
DX: S92.025A Nondisplaced fracture of anterior process of left calcaneus, initial encounter for closed fracture (principal); S92.255A Nondisplaced fracture of navicular [scaphoid] of left foot, initial encounter for closed fracture; S92.115A Nondisplaced fracture of neck of left talus, initial encounter for closed fracture; E03.9 Hypothyroidism, unspecified; Z86.73 Personal history of transient ischemic attack (TIA), and cerebral infarction without residual deficits; Z87.442 Personal history of urinary calculi; F41.9 Anxiety disorder, unspecified; F32.A Depression, unspecified; X50.9XXA Other and unspecified overexertion or strenuous movements or postures, initial encounter
CPT/HCPCS: 29515; 73610; 73630; 73700; 99284; A9270

== ENCOUNTER 2022-08-20 10:29 | Outpatient (CLI) | payer MEDICARE, SELFPAY ==
[2022-08-20 11:25] LABS: Basophils Absolute Auto 0.1 K/mm3 (0.0-0.1); Eosinophils Percent Auto 0.8 % (0-4.4); Hematocrit 40.6 % (37.0-47.0); Hemoglobin 13.2 g/dL (12.0-15.0); Immature Granulocyte Absolute 0.01 K/mm3 (0.00-0.031); Immature Granulocyte Percent A 0.2 % (0-0.5); Lymphocytes Absolute Auto 1.65 K/mm3 (0.9-3.2); Mean Corpuscular HGB Conc 32.5 g/dl (32-36); Mean Corpuscular Hemoglobin 31.9 pg (26-34); Mean Corpuscular Volume 98.1 fl (80-100); Mean Platelet Volume 9.8 fl (7.4-10.4); Monocytes Absolute Auto 0.4 K/mm3 (0.1-0.6); Monocytes Percent Auto 8.4 % (2.6-8.5); Neutrophils Absolute Auto 2.8 K/mm3 (1.3-6.7); Neutrophils Percent Auto 56.6 % (45.5-73.1); Platelet Count Result 288 k/mm3 (150-375); Red Blood Count 4.14 M/mm3 (4.2-5.4); Red Cell Distribution Width 12.6 % (11.5-14.5)
[2022-08-20 11:45] LABS: Alanine Aminotransferase 20 U/L (6-35); Albumin Level 4.4 g/dL (3.5-5.1); Alkaline Phosphatase 103 U/L (38-126); Anion Gap 5 mmol/L (8-16); Aspartate Amino Transferase 34 U/L (14-36); Bilirubin,Total 0.7 mg/dL (0.2-1.3); Blood Urea Nitrogen 9 mg/dL (7-17); Calcium 9.4 mg/dL (8.4-10.2); Carbon Dioxide 30 mmol/L (22-30); Chloride 105 mmol/L (98-107); Cholesterol 203 mg/dL (0-200); Estimated Glomerular Filt Rate > 60; Glucose 87 mg/dL (65-110); HDL Direct 73 mg/dL; Potassium 4.6 mmol/L (3.4-5.0); Sodium 140 mmol/L (137-145); Triglycerides 49 mg/dL (<150)
[2022-08-20 11:56] LABS: LDL Cholesterol Direct 90 mg/dL
== END 2022-08-20 10:30 | disposition home or self-care (01) ==
PROVIDERS: PCP Family Medicine; Visit Provider Physician Assistant
DX: E03.9 Hypothyroidism, unspecified (principal); I10 Essential (primary) hypertension; M81.0 Age-related osteoporosis without current pathological fracture
CPT/HCPCS: 36415; 80053; 80061; 84443; 85025

== ENCOUNTER 2022-09-04 12:44 | Emergency (ER) | payer MEDICARE, SELFPAY ==
--- NOTE | ~2022-09-04 | XR_ITS ---
EXAMINATION: XR shoulder RT min 2V DATE: 09/04/2022 13:53 INDICATION: Right shoulder injury and pain. TECHNIQUE: 4 views of right shoulder were obtained. COMPARISON: None. FINDINGS: Bone alignment is normal. There is a nondisplaced transverse fracture involving distal thir d of right clavicle. There is mild osteoarthritis of glenohumeral joint and moderate osteoarthritis o f acromioclavicular joint. IMPRESSION: 1. Transverse fracture of distal third of right clavicle. 2. Polyarticular osteoarthritis. Reviewed, dictated and finalized at location A.
[2022-09-04 12:58] VITALS: BP 131/100; PULSE 71; RESP 16; TEMP 37.2; O2SAT 100
--- NOTE | 2022-09-04 14:40 | ED.GENADULT ---
HPI - General Adult General Chief complaint: Extremity Injury, Upper Stated complaint: fell off her bed this morning, hurt her R shoulder Time Seen by Provider: 09/04/22 13:03 History of Present Illness HPI narrative: Pt is a 67 y/o female, presents to ED via POV with generalized right shoulder pain, after she slid out of bed this morning while rolling over to turn off her alarm clock, landing on the right shoulder. She denies hitting her head or LOC and she has no neck or pain pain. She denies pain to the right elbow, proximal forearm, wrist or hand. She is right hand dominant. 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 Ibuprofen she is taking for a pre-existing left foot fracture (for which she sees Dr Cantrell) Related Data Allergies Allergy/AdvReac Type Severity Reaction Status Date / Time No Known Allergies Allergy Verified 09/04/22 13:11 Review of Systems Review of Systems: refer to [facility] Past Medical History Medical History Anxiety Chronic pruritic rash in adult Colon cancer screening Depression Grade II diastolic dysfunction History of stress test (~2020) Hypothyroidism Screening for breast cancer TIA (transient ischemic attack) Urolithiasis Surgical History Surgical History H/O left wrist surgery History of appendectomy History of x2 History of tooth extraction History of tubal ligation History of urologic surgery Kidney Stone Removed Family History Family History Mother Lung cancer Sibling Bone cancer Heart disease History of hip replacement History of knee replacement Father Heart disease Social History Social History (Updated 08/20/22 @ 09:42 by Ashley Downing) Social History: Smoking status: Never smoker Second hand tobacco smoke exposure: No Alcohol intake: never Substance use: never Substance use type: does not use Has the Lack of Transportation Kept You From Medical Appointments or From Getting Medications?: No Within the Past 12 Months, Were You Worried Whether Your Food Would Run Out Before You Got Money to Buy More?: Never True What is Your Housing Situation Today?: I Have Housing Are You Worried That in the Next 2 Months, You May Not Have Your Own Housing to Live In?: No Do You Have Trouble Paying Your Heating Or Electricity Bill?: No Do You Have Trouble Paying For Medicines?: No Are You Currently Unemployed and Looking for Work?: No Highest Level of Education Completed: Bachelor's Degree Do You Have Trouble With Childcare or the Care of a Family Member?: No Additional living arrangements comments: Pt lives with her daughter and her son in law. Gender identity (if verbalized by the patient): Female Sexual Orientation (if Verbalized by the Patient): Straight or Heterosexual Spiritual care concerns: No Exam Const: General: healthy appearing, no acute distress and alert Orientation/consciousness: patient oriented x3 HENMT: Head: normal to inspection Face/Nose/Sinus: Normal external nose present Eyes: Conjunctivae: conjunctivae normal Pupils: Equal, round and reactive pupils present EOM: EOMs intact bilaterally Neck: Neck: normal visual inspection Other: no C spine point tenderness, no step offs Chest: Chest palpation & inspection: normal inspection of the chest Resp: Effort & Inspection: normal respiratory effort Auscultation: clear to auscultation bilaterally Cardio: Rate: regular rate Rhythm: regular rhythm Back/Spine/Pelvis: Back: no CVA tenderness Other: No T or L spine point tenderness, no step offs Skin: Other: no rashes or ecchymosis noted Neuro: General: patient oriented x3, moves all extremities (RUE guarded secondary to pain, normal distal PMS), no meningeal signs and no focal motor deficits Extrem: Other:
[2022-09-04 15:22] VITALS: BP 138/79; PULSE 64; RESP 16; TEMP 36.6; O2SAT 96
== END 2022-09-04 15:23 | disposition home or self-care (01) ==
PROVIDERS: Emergency Provider Nurse Practitioner Family; PCP Family Medicine
DX: S42.034A Nondisplaced fracture of lateral end of right clavicle, initial encounter for closed fracture (principal); E03.9 Hypothyroidism, unspecified; Z86.73 Personal history of transient ischemic attack (TIA), and cerebral infarction without residual deficits; Z87.442 Personal history of urinary calculi; M19.011 Primary osteoarthritis, right shoulder; W06.XXXA Fall from bed, initial encounter
CPT/HCPCS: 73030; 99284; A4565

== ENCOUNTER 2022-10-12 13:05 | Outpatient (CLI) | payer MEDICARE, SELFPAY ==
--- NOTE | ~2022-10-12 | CT_ITS ---
Non-contrast Head CT History: Unsteadiness, status post fall Technique: Axial non-contrast imaging of the brain was performed. Dose reduction technique was used on this scan by utilizing automated exposure control and iterative reconstruction technique. The dose -length product (DLP) was 605.33 mGy-cm. Findings: There is no evidence of intracranial hemorrhage, mass lesion, or acute infarct. Brain par enchyma appears normal. The ventricles and subarachnoid spaces are normal in size. The calvarium ap pears normal. The visualized paranasal sinuses and mastoid air cells are clear. Impression: No significant abnormality seen. Reviewed, dictated and finalized at [facility]. E FINISHER Impression: No significant abnormality seen.
== END 2022-10-12 13:06 | disposition home or self-care (01) ==
PROVIDERS: PCP Family Medicine; Visit Provider Family Medicine
DX: S06.0XAA Concussion with loss of consciousness status unknown, initial encounter (principal); X58.XXXA Exposure to other specified factors, initial encounter
CPT/HCPCS: 70450

== ENCOUNTER 2022-10-16 17:24 | Outpatient (CLI) | payer MEDICARE, SELFPAY ==
[2022-10-16 18:02] LABS: Add Urine Microscopic? YES; Appearance Urine Clear (Clear); Bilirubin Urine Negative (Negative); Blood Urine Negative (Negative); Color Urine Light Yellow (Yellow); Glucose Urine UA Negative (Negative); Ketones Urine Trace mg/dL (Negative); Leukocyte Esterase Ur Negative LEU/UL (Negative); Nitrate Urine Negative (Negative); Protein Urine Negative (Negative); Specific Grav Ur 1.025 (1.001-1.035); Urobilinogen Urine 0.2 mg/dL (<2.0)
[2022-10-16 18:11] LABS: Calcium Oxalate Crystals Urine Present /hpf; Mucus Urine Few /lpf; RBC Urine 0-2 /hpf (0-2); Squamous Epithelial Cell Urine Rare /hpf (Few)
== END 2022-10-16 17:25 | disposition home or self-care (01) ==
PROVIDERS: PCP Family Medicine; Visit Provider Family Medicine
DX: R30.0 Dysuria (principal)
CPT/HCPCS: 81001

== ENCOUNTER 2022-11-04 10:09 | Outpatient (CLI) | payer MEDICARE, SELFPAY | END 2022-11-04 10:10 | disposition home or self-care (01) | LOC: ANHAUDIO 10:10 | PROVIDERS: PCP Family Medicine; Visit Provider Family Medicine | DX: H93.19 Tinnitus, unspecified ear (principal); H90.3 Sensorineural hearing loss, bilateral | CPT/HCPCS: 92557; 92567 ==

== ENCOUNTER 2022-12-10 10:27 | Emergency (ER) | payer MEDICARE, SELFPAY ==
--- NOTE | ~2022-12-10 | CT_ITS ---
EXAMINATION: CT cervical spine wo con DATE: 12/10/2022 13:04 INDICATION: Neck injury. Fall. TECHNIQUE: Computed tomography (CT) of the cervical spine was performed without intravenous contrast. Automated exposure control and iterative reconstruction technique were employed. The dose-length pro duct was 151.70 mGy-cm. COMPARISON: None FINDINGS: There is 10 degrees levoscoliosis of cervicothoracic spine. There is 2 mm anterolisthesis o f C4 on C5. Vertebral body heights are normal. There is mildly decreased disc height at C3-C4 and C4- C5, severely decreased disc height at C5-C6, and moderately decreased disc height at C6-C7. The follo wing disc levels are specifically discussed: C2-C3: There is no uncovertebral joint osteoarthritis. There is severe bilateral facet joint osteoart hritis. There is no neural foraminal stenosis. There is no central canal stenosis. C3-C4: There is severe bilateral uncovertebral joint osteoarthritis. There is severe bilateral facet joint osteoarthritis. There is mild bilateral neural foraminal stenosis. There is mild central canal stenosis. C4-C5: There is severe right and mild left uncovertebral joint osteoarthritis. There is severe bilate ral facet joint osteoarthritis. There is moderate right and mild left neural foraminal stenosis. Ther e is mild central canal stenosis. C5-C6: There is severe bilateral uncovertebral joint osteoarthritis. There is moderate bilateral face t joint osteoarthritis. There is moderate bilateral neural foraminal stenosis. There is mild central canal stenosis. C6-C7: There is severe right and mild left uncovertebral joint osteoarthritis. There is moderate bila teral facet joint osteoarthritis. There is mild bilateral neural foraminal stenosis. There is mild ce ntral canal stenosis. C7-T1: There is no uncovertebral joint osteoarthritis. There is moderate right and mild left facet lisa int osteoarthritis. There is no neural foraminal stenosis. There is no central canal stenosis. IMPRESSION: 1. No fracture. 2. Severe cervical spondylosis. 3. Cervicothoracic levoscoliosis. Reviewed, dictated and finalized at location A. ENTICE STYLIST
--- NOTE | ~2022-12-10 | CT_ITS ---
EXAMINATION: CT brain wo con DATE: 12/10/2022 13:04 INDICATION: Head injury. TECHNIQUE: Computed tomography (CT) of the head was performed without intravenous contrast. The mA wa s adjusted according to patient size. Iterative reconstruction technique was employed. The dose-lengt h product was 605.33 mGy-cm. COMPARISON: Head CT 10/12/2022 FINDINGS: There is no intracranial hemorrhage, acute infarction, or abnormal intracranial mass lesion . There are scattered areas of low attenuation in the cerebral white matter, which is within normal l imits for the patient's age. The ventricles are normal in size. The paranasal sinuses are clear. Ther e are likely changes of ocular lens replacement surgeries. The mastoid air cells are normal. IMPRESSION: 1. Normal aging brain. Reviewed, dictated and finalized at location A. ER RACKER IMPRESSION: 1. Normal aging brain.
--- NOTE | ~2022-12-10 | XR_ITS ---
EXAMINATION: XR toe 1st LT min 2V DATE: 12/10/2022 11:00 INDICATION: Left great toe injury and pain. TECHNIQUE: 3 views of left great toe were obtained. COMPARISON: Left foot radiographs 06/27/2022 FINDINGS: Pes cavus is noted. There is diffuse osteopenia. There is a nondisplaced fracture of medial base of first proximal phalanx. Joint spaces are normal. IMPRESSION: 1. Nondisplaced intra-articular fracture of medial base of first proximal phalanx. Reviewed, dictated and finalized at location A. TECHNICIAN IMPRESSION: 1. Nondisplaced intra-articular fracture of medial base of first proximal phala nx.
--- NOTE | ~2022-12-10 | XR_ITS ---
Right Shoulder Technique: AP and scapular Y views were obtained. Clinical History: Trauma Findings: There is a traumatic fracture through the surgical neck of the right humerus, minimally dis placed. No dislocation evident. The glenohumeral and acromioclavicular joint spaces are preserved. So ft tissues are unremarkable. Impression: Traumatic, mildly displaced fracture through the surgical neck of the right humerus. Reviewed, dictated and finalized at location M. LE TAKER OPERATOR Impression: Traumatic, mildly displaced fracture through the surgical neck of the right hum erus.
[2022-12-10 10:29] VITALS: BP 119/61; PULSE 58; RESP 16; TEMP 36.6; O2SAT 99
--- NOTE | 2022-12-10 12:18 | ED.FALL ---
HPI - Fall General Chief Complaint: Fall Stated Complaint: GLF Time Seen by Provider: 12/10/22 11:54 Source: patient Mode of arrival: EMS Limitations: no limitations History of Present Illness HPI Narrative: Patient is a 67-year-old female who presents the ED via EMS with report of a fall. Patient reports she was walking out of her bedroom today and her left big toe became stuck in her pajama bottom pants. She fell forward with her arms outstretched. She is unsure if she hit her head, but believes she lost consciousness. Unsure if this was due to the pain or hitting her head. When she came to, she complained of severe pain to her right shoulder and left first toe. Patient reports a history of frequent falls in the past, which have all been mechanical. She sustained a right clavicular fracture in September of last year and reports she was released from orthopedics (Dr. Mata) yesterday. Patient denies any prodromal symptoms prior to today's fall. She denies any dizziness, lightheadedness, vision changes, nausea, vomiting, chest pain, difficulty breathing, headache, neck pain, numbness/tingling. Patient does not drink alcohol. She is not on any blood thinners. Related Data Home Medications Medication Instructions Recorded Confirmed alendronate 5 mg tablet 5 mg PO QAM 12/09/22 12/09/22 trazodone 50 mg tablet mg 12/10/22 Allergies Allergy/AdvReac Type Severity Reaction Status Date / Time No Known Allergies Allergy Verified 12/10/22 11:52 Review of Systems Review of Systems: CONSTITUTIONAL: Denies fever, chills, or sweats. EYES: Denies visual changes. CARDIOVASCULAR: Denies chest pain. RESPIRATORY: Denies dyspnea. GASTROINTESTINAL: Denies abdominal pain, nausea, vomiting. MUSCULOSKELETAL: See HPI. NEUROLOGIC: Denies dizziness, lightheadedness, headache, numbness, or weakness. All systems reviewed & are unremarkable except as noted in HPI and below PMFSH Past Medical History Medical History Anxiety Chronic pruritic rash in adult Colon cancer screening Depression Grade II diastolic dysfunction History of stress test (~2020) Hypothyroidism Screening for breast cancer TIA (transient ischemic attack) Urolithiasis Surgical History Surgical History H/O left wrist surgery History of appendectomy History of x2 History of tooth extraction History of tubal ligation History of urologic surgery Kidney Stone Removed Family History Family History Mother Lung cancer Sibling Bone cancer Heart disease History of hip replacement History of knee replacement Father Heart disease Social History Social History Social History: Smoking status: Never smoker Second hand tobacco smoke exposure: No Alcohol intake: never Substance use: never Substance use type: does not use Lack of Transportation: No Lack of Food: Never True Current Housing: I Have Housing Concerned About Future Housing: No Difficulty Paying Gas/Electric Bills: No Difficulty Paying for Meds: No Currently Unemployed: No Education: Bachelor's Degree Difficulty w/ Childcare or Family Care: No Living arrangements: with family Additional living arrangements comments: Pt lives with her daughter and her son in law. Occupation/Education: retired Gender identity (if verbalized by the patient): Female Sexual Orientation (if Verbalized by the Patient): Straight or Heterosexual Spiritual care concerns: No Exam Narrative: GENERAL: Well appearing, well-nourished, non-toxic, in no acute distress. HEAD: Normocephalic, atraumatic. No scalp tenderness or contusions. NECK: Supple. No adenopathy, no masses. No midline spinal tenderness. RESPIRATORY: Airway pat
--- NOTE | 2022-12-10 12:33 | ECG_ITS ---
Measurements Intervals [place] Rate: 56 P: 52 IA: 151 QRS: 22 QRSD: 84 T: 89 QT: 433 QTc: 419 Interpretive Statements SINUS BRADYCARDIA LOW QRS VOLTAGE [QRS DEFLECTION < 0.5/1.0 mV IN LIMB/CHEST LEADS] NONSPECIFIC T-WAVE ABNORMALITY NO PREVIOUS ECG AVAILABLE FOR COMPARISON Electronically Signed On 12-10-2022 15:49:44 BORING AND FILLING MACHINE OPERATOR by Leonardo Martinez M.D.
[2022-12-10 12:53] LABS: Basophils Percent Auto 0.4 % (0.2-1.2); Eosinophils Percent Auto 0.1 % (0-4.4); Hematocrit 38.2 % (37.0-47.0); Hemoglobin 12.8 g/dL (12.0-15.0); Immature Granulocyte Absolute 0.04 K/mm3 (0.00-0.031); Immature Granulocyte Percent A 0.4 % (0-0.5); Lymphocytes Absolute Auto 1.01 K/mm3 (0.9-3.2); Lymphocytes Percent Auto 9.3 % (18.3-44.2); Mean Corpuscular HGB Conc 33.5 g/dl (32-36); Mean Corpuscular Hemoglobin 32.7 pg (26-34); Mean Corpuscular Volume 97.4 fl (80-100); Mean Platelet Volume 9.4 fl (7.4-10.4); Monocytes Absolute Auto 0.4 K/mm3 (0.1-0.6); Neutrophils Absolute Auto 9.4 K/mm3 (1.3-6.7); Neutrophils Percent Auto 85.8 % (45.5-73.1); Platelet Count Result 251 k/mm3 (150-375); Red Blood Count 3.92 M/mm3 (4.2-5.4); Red Cell Distribution Width 12.8 % (11.5-14.5); White Blood Count 10.9 K/mm3 (4.5-10.0)
[2022-12-10 13:03] LABS: Alanine Aminotransferase 38 U/L (6-35); Alkaline Phosphatase 103 U/L (38-126); Anion Gap 3 mmol/L (8-16); Aspartate Amino Transferase 41 U/L (14-36); Bilirubin,Total 0.5 mg/dL (0.2-1.3); Blood Urea Nitrogen 16 mg/dL (7-17); Calcium 8.2 mg/dL (8.4-10.2); Carbon Dioxide 27 mmol/L (22-30); Chloride 106 mmol/L (98-107); Estimated CRCL calculation 60 ml/min; Estimated Glomerular Filt Rate > 60; Glucose 98 mg/dL (65-110); Potassium 3.7 mmol/L (3.4-5.0); Sodium 136 mmol/L (137-145)
[2022-12-10 13:14] LABS: Troponin I < 0.012 ng/mL (0.000-0.034)
[2022-12-10] MEDS: MORPHINE SULFATE (*CRX) 4 MG/ML INJ IV PUSH (13:16)
[2022-12-10] MEDS: ONDANSETRON INJ 4 MG/2 ML VIAL IV PUSH (13:16)
[2022-12-10 13:20] VITALS: BP 114/73; PULSE 67; RESP 16; O2SAT 100
[2022-12-10] MEDS: HYDROmorphone HCL INJ (*CRX) 1 MG/ML SYR 0.5 MG IV PUSH ×2 (14:33→15:40)
[2022-12-10 15:00] LABS: Appearance Urine Slightly Cloudy (Clear); Bilirubin Urine Negative (Negative); Blood Urine Negative (Negative); Color Urine Yellow (Yellow); Glucose Urine UA Negative (Negative); Ketones Urine Negative (Negative); Leukocyte Esterase Ur Negative LEU/UL (Negative); Nitrate Urine Negative (Negative); Protein Urine Trace mg/dL (Negative); Specific Grav Ur 1.025 (1.001-1.035); Urobilinogen Urine 0.2 mg/dL (<2.0)
[2022-12-10 15:10] LABS: Add Urine Microscopic? YES; Mucus Urine Few /lpf; WBC Urine 0-3 /hpf
--- NOTE | 2022-12-10 16:35 | PC.NURSE ---
SPOKE WITH MEHDRAD PT'S DAUGHTER TO GIVE UPDATE ON MOTHER'S CONDITION. SHE AND HER WILL BE COMING TO THE ED TO TAKE PT BACK HOME.
[2022-12-10 16:45] VITALS: BP 116/67; PULSE 67; O2SAT 100
== END 2022-12-10 16:45 | disposition home or self-care (01) ==
PROVIDERS: Emergency Provider Physician Assistant; PCP Family Medicine
DX: S42.291A Other displaced fracture of upper end of right humerus, initial encounter for closed fracture (principal); S92.415A Nondisplaced fracture of proximal phalanx of left great toe, initial encounter for closed fracture; R00.1 Bradycardia, unspecified; F41.9 Anxiety disorder, unspecified; F32.9 Major depressive disorder, single episode, unspecified; W01.0XXA Fall on same level from slipping, tripping and stumbling without subsequent striking against object, initial encounter
CPT/HCPCS: 36415; 70450; 72125; 73030; 73660; 80053; 81001; 84484; 85025; 93005; 96374; 96375; 96376; 99284; A4565; J1170; J2270; J2405

== ENCOUNTER 2022-12-27 11:37 | Emergency (ER) | payer MEDICARE, SELFPAY ==
--- NOTE | ~2022-12-27 | XR_ITS ---
EXAM: XR shoulder RT min 2V DATE: 12/27/2022 16:04 HISTORY: arm pain, recent fracture . COMPARISON: 12/16/2022, 12/10/2022. FINDINGS: Normal mineralization. Comminuted fracture of the proximal right humerus at the junction o f the humeral head and shaft, with one half shaft width anterior and medial displacement and 1 cm imp action. Alignment is unchanged given interval differences in positioning Old distal right clavicular fracture. No lytic or blastic lesion. Joint spaces are maintained. No erosion or periosteal change. S oft tissues within normal limits. IMPRESSION: Grossly stable, comminuted, displaced, and impacted proximal right humeral fracture. Reviewed, dictated and finalized at location K. OR BIOINFORMATICS SCIENTIST
--- NOTE | ~2022-12-27 | XR_ITS ---
EXAM: XR forearm RT 2V DATE: 12/27/2022 16:04 HISTORY: lower arm pain . COMPARISON: None available. FINDINGS: Decreased mineralization. No fracture or dislocation. No lytic or blastic lesion. Scattere d degenerative changes. No erosion or periosteal change. Soft tissue swelling about the forearm. IMPRESSION: No acute osseous finding in the right forearm. Reviewed, dictated and finalized at location K. KEEPER
--- NOTE | ~2022-12-27 | US_ITS ---
EXAMINATION: US venous doppler UE RT DATE: 12/27/2022 15:48 INDICATION: Right arm swelling and pain. TECHNIQUE: Grayscale ultrasound images without and with compression and Doppler ultrasound images of the right upper extremity veins were obtained. COMPARISON: None.. FINDINGS: The visualized portions of the right internal jugular vein, subclavian vein, axillary vein, brachial veins, basilic vein, cephalic vein, radial vein, and ulnar vein are patent. IMPRESSION: 1. No deep venous thrombosis. Reviewed, dictated and finalized at location K. E SUPERVISOR
[2022-12-27 11:45] VITALS: BP 140/64; PULSE 72; RESP 16; TEMP 36.8; O2SAT 100
--- NOTE | 2022-12-27 15:23 | ED.UPPEXIN ---
HPI - Extremity Injury (Upper) General Chief Complaint: Extremity Injury, Upper Stated Complaint: RUE injury/pain Time Seen by Provider: 12/27/22 14:11 Source: patient Mode of arrival: wheelchair Limitations: no limitations History of Present Illness HPI narrative: This is a 67-year-old female that presents to the emergency department for right arm pain. Was seen at the beginning of this month and diagnosed with a humeral fracture after a fall. Reports she has had worsening pain and swelling in her lower arm over the last couple of weeks. She is due for follow up with orthopedics again this week. Patient has been wearing her shoulder immobilizer and taking her pain medication as needed. Denies fever or erythema. Related Data Home Medications Medication Instructions Recorded Confirmed alendronate 5 mg tablet 5 mg PO QAM 12/09/22 12/16/22 Allergies Allergy/AdvReac Type Severity Reaction Status Date / Time No Known Allergies Allergy Verified 12/18/22 15:21 Review of Systems Review of Systems: CONSTITUTIONAL: Denies fever SKIN: Denies rash MUSCULOSKELETAL: Reports joint pain, and myalgia. NEUROLOGIC: Denies numbness All systems reviewed & are unremarkable except as noted in HPI and below PMFSH Past Medical History Medical History Anxiety Chronic pruritic rash in adult Colon cancer screening Depression Grade II diastolic dysfunction History of stress test (~2020) Hypothyroidism Screening for breast cancer TIA (transient ischemic attack) Urolithiasis Surgical History Surgical History H/O left wrist surgery History of appendectomy History of x2 History of tooth extraction History of tubal ligation History of urologic surgery Kidney Stone Removed Family History Family History Mother Lung cancer Sibling Bone cancer Heart disease History of hip replacement History of knee replacement Father Heart disease Social History Social History Social History: Smoking status: Never smoker Second hand tobacco smoke exposure: No Alcohol intake: never Substance use: never Substance use type: does not use Lack of Transportation: No Lack of Food: Never True Current Housing: I Have Housing Concerned About Future Housing: No Difficulty Paying Gas/Electric Bills: No Difficulty Paying for Meds: No Currently Unemployed: No Education: Bachelor's Degree Difficulty w/ Childcare or Family Care: No Living arrangements: with family Additional living arrangements comments: Pt lives with her daughter and her son in law. Occupation/Education: retired Gender identity (if verbalized by the patient): Female Sexual Orientation (if Verbalized by the Patient): Straight or Heterosexual Spiritual care concerns: No Exam Narrative: GENERAL: Well-appearing, well-nourished, and in no acute distress. HEAD: Normocephalic, atraumatic. EYES: EOMI. CHEST: No respiratory distress. HEART: Regular rate EXTREMITIES: Normal range of motion in the right elbow and wrist. No erythema or warmth. Mild to moderate edema about the right forearm. Normal radial pulse. Normal sensation. Compartments are soft SKIN: Warm, dry, no rash. NEURO: No focal deficits. Alert and oriented x3. PSYCH: Normal mood and affect Course Course Emergency Course: Patient was updated on workup and agrees with plan of care Vital Signs Vital signs: Vital Signs Temperature 98.2 F 12/27/22 11:45 Pulse Rate 72 12/27/22 11:45 Respiratory Rate 16 12/27/22 11:45 Blood Pressure 140/64 12/27/22 11:45 Pulse Oximetry 100 12/27/22 11:45 Oxygen Delivery Room Air 12/27/22 11:45 Temperature 98.2 F 12/27/22 11:45 Pulse Rate 72 12/27/22 11:45 Respiratory Rate 16 02
== END 2022-12-27 16:39 | disposition home or self-care (01) ==
PROVIDERS: Emergency Provider Physician Assistant; PCP Family Medicine
DX: M79.631 Pain in right forearm (principal); S42.291D Other displaced fracture of upper end of right humerus, subsequent encounter for fracture with routine healing; E03.9 Hypothyroidism, unspecified; Z86.73 Personal history of transient ischemic attack (TIA), and cerebral infarction without residual deficits; W19.XXXD Unspecified fall, subsequent encounter
CPT/HCPCS: 73030; 73090; 93971; 99284

== ENCOUNTER 2023-01-13 14:17 | Outpatient (CLI) | payer MEDICARE, SELFPAY ==
[2023-01-13 15:26] LABS: Basophils Absolute Auto 0.1 K/mm3 (0.0-0.1); Basophils Percent Auto 0.8 % (0.2-1.2); Eosinophils Absolute Auto 0.2 K/mm3 (0-0.3); Eosinophils Percent Auto 3.7 % (0-4.4); Hematocrit 34.2 % (37.0-47.0); Hemoglobin 11.3 g/dL (12.0-15.0); Immature Granulocyte Absolute 0.02 K/mm3 (0.00-0.031); Immature Granulocyte Percent A 0.3 % (0-0.5); Lymphocytes Absolute Auto 2.05 K/mm3 (0.9-3.2); Lymphocytes Percent Auto 31.4 % (18.3-44.2); Mean Corpuscular Hemoglobin 31.7 pg (26-34); Mean Corpuscular Volume 96.1 fl (80-100); Mean Platelet Volume 9.2 fl (7.4-10.4); Monocytes Absolute Auto 0.5 K/mm3 (0.1-0.6); Monocytes Percent Auto 7.2 % (2.6-8.5); Neutrophils Absolute Auto 3.7 K/mm3 (1.3-6.7); Neutrophils Percent Auto 56.6 % (45.5-73.1); Platelet Count Result 325 k/mm3 (150-375); Red Blood Count 3.56 M/mm3 (4.2-5.4); Red Cell Distribution Width 12.6 % (11.5-14.5); White Blood Count 6.5 K/mm3 (4.5-10.0)
[2023-01-13 15:33] LABS: Alanine Aminotransferase 67 U/L (6-35); Albumin Level 4.4 g/dL (3.5-5.1); Alkaline Phosphatase 103 U/L (38-126); Anion Gap 5 mmol/L (8-16); Aspartate Amino Transferase 92 U/L (14-36); Bilirubin,Total 0.6 mg/dL (0.2-1.3); Blood Urea Nitrogen 15 mg/dL (7-17); Calcium 8.6 mg/dL (8.4-10.2); Carbon Dioxide 28 mmol/L (22-30); Chloride 108 mmol/L (98-107); Estimated Glomerular Filt Rate > 60; Glucose 87 mg/dL (65-110); Potassium 3.7 mmol/L (3.4-5.0); Sodium 141 mmol/L (137-145)
[2023-01-13 16:22] LABS: Erythrocyte Sedimentation Rate 37 mm/hr (0-20)
[2023-01-13 18:01] LABS: Free T4 Free Thyroxine Reflex 1.09 ng/dL (0.78-2.19)
[2023-01-13 20:17] LABS: Total Triiodothyronine (T3) 1.23 NG/ML (0.97-1.69)
[2023-01-18 05:31] LABS: CRP, High Sensitivity 1.1 mg/L (***)
== END 2023-01-13 14:18 | disposition home or self-care (01) ==
PROVIDERS: PCP Family Medicine; Visit Provider Physician Assistant
DX: I10 Essential (primary) hypertension (principal); E03.9 Hypothyroidism, unspecified; Z96.651 Presence of right artificial knee joint; R29.6 Repeated falls; R42 Dizziness and giddiness
CPT/HCPCS: 36415; 80053; 84439; 84443; 84480; 85025; 85652; 86141

== ENCOUNTER 2023-01-19 10:25 | Outpatient (CLI) | payer MEDICARE, SELFPAY ==
[2023-01-19 13:04] LABS: Iron 47 ug/dL (37-170)
[2023-01-19 13:13] LABS: Percent Iron Saturation 13 % (20-50)
--- NOTE | 2023-01-22 16:32 | WPDHOLTEREM ---
Holter/Event Monitor Holter/Event Monitor Date of procedure: 01/19/23 Holter/Event Procedure: 48 Hr Holter Monitor Indications: Dizziness, falls Conclusion: 1. 48 hour holter monitor on 01/19/23. 2. Predominant rhythm is sinus rhythm. HR range 54-126 bpm; average HR 78 bpm. 3. There are 20 premature supraventricular complexes and 4 supraventricular couplets. One episode of atrial tachycardia at 146 bpm lasting 4 beats at 12:03. 4. There are 86 premature ventricular complexes. No ventricular tachycardia. 5. No sinoatrial or atrioventricular blocks. No significant pauses greater than 2 seconds. 6. No symptoms available for correlation.
== END 2023-01-19 10:26 | disposition home or self-care (01) ==
PROVIDERS: PCP Family Medicine; Visit Provider Physician Assistant
DX: D64.9 Anemia, unspecified (principal)
CPT/HCPCS: 36415; 82607; 83540; 83550; 93225; 93226

== ENCOUNTER 2023-01-19 10:32 | Outpatient (CLI) | payer MEDICARE, SELFPAY ==
--- NOTE | ~2023-01-19 | US_ITS ---
EXAMINATION: US carotid duplex BI DATE: 01/19/2023 12:16 INDICATION: Dizziness and giddiness. Carotid atherosclerosis. TECHNIQUE: Grayscale, color Doppler, and pulsed Doppler images of the cervical carotid arteries were obtained. The degree of vessel stenosis is placed in one of the following categories: normal, <50%, 5 0-69%, >=70% but less than near-occlusion, near-occlusion, or total occlusion. Note that percent sten osis relative to normal distal artery lumen diameter is indirectly measured from velocity measurement s as described by Yovani, et al. Radiology 2003; 229:340-346. COMPARISON: None. FINDINGS: RIGHT: The right common carotid artery (CCA) peak systolic velocity (PSV) is 72 cm/s. The right internal car otid artery (ICA) PSV is 112 cm/s. The right ICA end-diastolic velocity (EDV) is 31 cm/s. The right I CA/CCA PSV ratio is 1.6. Grayscale and color Doppler images yield an estimate of <50% diameter reduct ion from plaque in the ICA. The external carotid artery (ECA) PSV is 59 cm/s. There is antegrade flow in the right vertebral artery. LEFT: The left CCA PSV is 74 cm/s. The left ICA PSV is 71 cm/s. The left ICA EDV is 30 cm/s. The left ICA/C CA PSV ratio is 1.0. Grayscale and color Doppler images yield an estimate of <50% diameter reduction from plaque in the ICA. The ECA PSV is 50 cm/s. There is antegrade flow in the left vertebral artery. IMPRESSION: 1. <50% stenosis from minimal plaque in the right internal carotid artery. 2. <50% stenosis from minimal plaque in the left internal carotid artery. Reviewed, dictated and finalized at location A.
--- NOTE | ~2023-01-19 | US_ITS ---
Limited Abdominal Sonogram: Real-time sonographic imaging of the right upper quadrant was performed. Clinical History: Abnormal LFTs Findings: The liver appears normal with no evidence of mass lesion or bile duct dilatation. Main por sona vein demonstrates normal direction of flow. The gallbladder is well distended, and appears normal with no evidence of gallstone or wall thickening. The common bile duct measures 3 mm. The visualize d pancreas, aorta, and IVC are unremarkable. Impression: No significant abnormality seen. Reviewed, dictated and finalized at location . Impression: No significant abnormality seen.
--- NOTE | ~2023-01-19 | US_ITS ---
EXAMINATION: US soft tissue head and neck DATE: 01/19/2023 12:16 INDICATION: Enlarged cervical lymph nodes TECHNIQUE: Multiple grayscale and Doppler ultrasound images of the neck were obtained. COMPARISON: Cervical spine CT dated 12/10/2022 FINDINGS: Normal-sized lymph nodes with central echogenic hilum are identified on both the right and left jugul ar chains measuring up to 5 mm maximal short axis diameter on the right and 6 mm on the left. No path ologically enlarged lymphadenopathy or other abnormal masses or fluid collections identified. IMPRESSION: 1. Normal bilateral jugular chain lymph nodes. Reviewed, dictated and finalized at location A.
== END 2023-01-19 10:33 | disposition home or self-care (01) ==
LOC: ANHIMG 10:33
PROVIDERS: PCP Family Medicine; Visit Provider Physician Assistant
DX: R29.6 Repeated falls (principal); R79.89 Other specified abnormal findings of blood chemistry; R59.0 Localized enlarged lymph nodes; R42 Dizziness and giddiness; I65.23 Occlusion and stenosis of bilateral carotid arteries
CPT/HCPCS: 36415; 76536; 76705; 82607; 83540; 83550; 93225; 93226; 93880

== ENCOUNTER 2023-01-20 17:42 | Outpatient (CLI) | payer MEDICARE, SELFPAY ==
[2023-01-20 18:09] LABS: IFOB Positive Control Positive; Immunochemical Fecal Occult Bl Negative (N)
== END 2023-01-20 17:43 | disposition home or self-care (01) ==
LOC: ANHLAB 17:43
PROVIDERS: PCP Family Medicine; Visit Provider Physician Assistant
DX: D64.9 Anemia, unspecified (principal)
CPT/HCPCS: 82274

== ENCOUNTER 2023-02-17 14:19 | Outpatient (CLI) | payer MEDICARE, SELFPAY ==
[2023-02-17 14:40] LABS: Basophils Percent Auto 0.6 % (0.2-1.2); Eosinophils Absolute Auto 0.1 K/mm3 (0-0.3); Eosinophils Percent Auto 1.3 % (0-4.4); Hematocrit 39.7 % (37.0-47.0); Hemoglobin 12.7 g/dL (12.0-15.0); Immature Granulocyte Absolute 0.02 K/mm3 (0.00-0.031); Immature Granulocyte Percent A 0.3 % (0-0.5); Lymphocytes Percent Auto 26.9 % (18.3-44.2); Mean Platelet Volume 9.5 fl (7.4-10.4); Monocytes Absolute Auto 0.5 K/mm3 (0.1-0.6); Monocytes Percent Auto 6.9 % (2.6-8.5); Neutrophils Absolute Auto 4.3 K/mm3 (1.3-6.7); Platelet Count Result 297 k/mm3 (150-375); Red Blood Count 3.97 M/mm3 (4.2-5.4); Red Cell Distribution Width 12.8 % (11.5-14.5); White Blood Count 6.7 K/mm3 (4.5-10.0)
[2023-02-17 15:01] LABS: Alanine Aminotransferase 32 U/L (6-35); Albumin Level 4.5 g/dL (3.5-5.1); Alkaline Phosphatase 102 U/L (38-126); Anion Gap 6 mmol/L (8-16); Aspartate Amino Transferase 40 U/L (14-36); Bilirubin,Total 0.6 mg/dL (0.2-1.3); Blood Urea Nitrogen 10 mg/dL (7-17); Calcium 8.8 mg/dL (8.4-10.2); Carbon Dioxide 28 mmol/L (22-30); Chloride 107 mmol/L (98-107); Estimated Glomerular Filt Rate > 60; Glucose 95 mg/dL (65-110); Potassium 3.9 mmol/L (3.4-5.0); Sodium 141 mmol/L (137-145)
[2023-02-17 15:42] LABS: Hepatitis B Surface Antigen Negative (Negative)
[2023-02-17 15:48] LABS: HAV RESULT Negative (Negative); Hepatitis B Core IgM Result Negative (Negative)
[2023-02-17 16:00] LABS: Hepatitis C Virus Antibody Negative (Negative)
== END 2023-02-17 14:20 | disposition home or self-care (01) ==
PROVIDERS: PCP Family Medicine; Referring Provider Physician Assistant; Visit Provider Nurse Practitioner Gerontology
DX: R10.9 Unspecified abdominal pain (principal); R79.89 Other specified abnormal findings of blood chemistry; D64.9 Anemia, unspecified; Z96.651 Presence of right artificial knee joint
CPT/HCPCS: 36415; 80053; 80074; 82607; 85025

== ENCOUNTER 2023-03-17 09:25 | Outpatient (CLI) | payer MEDICARE, SELFPAY ==
--- NOTE | ~2023-03-17 | DEXA_ITS ---
Bone Density Report Name: SHADE HELMS Age: 67 Sex: Female Ethnicity: White Date of : 1955 Indication: postmenopausal; screening for osteoporosis; prior fracture; Referring Provider: SOURAV CASILLAS Study: Bone densitometry was performed. Exam Date: March 17, 2023 Accession number: [id number] Bone Density: Region BMD T-score Z-score Classification AP Spine(L1-L4) 0.726 -2.9 -0.9 Osteoporosis Femoral Neck (Left) 0.493 -3.2 -1.5 Osteoporosis Total Hip (Left) 0.592 -2.9 -1.4 Osteoporosis Femoral Neck (Right) 0.573 -2.5 -0.8 Osteoporosis Total Hip (Right) 0.670 -2.2 -0.8 Osteopenia Total Hip Mean 0.631 -2.6 -1.1 Osteoporosis World Health Organization criteria for BMD impression classify patients as: Normal (T-score at or above -1.0), Osteopenia (T-score between -1.0 and -2.5), or Osteoporosis (T-score at or below -2.5). 10-year Fracture Risk: FRAX not reported because: Some T-score for Spine Total or Hip Total or Femoral Neck at or below -2.5 Clinical Information Provided by Patient: Has had a low trauma fracture Patient maximum height was 62 Menopause Age: 53 No regular weight bearing exercise Onset of menses at age 12 Number of children 4 Impression: The patient has established osteoporosis, based on the Left Femoral Neck T-score and the existence of a prior fracture. The patient has risk factors, including: previous fracture. Discussion: HIGH RISK OF FRACTURE. BONE DENSITY IS UNDESIRABLY LOW AT ONE OR MORE SKELETAL SITES, CONSISTENT WITH POSTMENOPAUSAL OSTEOPOROSIS. This patient's lowest T-score, in a patient who has previously fractured, meets the World Health Organization's (WHO) criteria for severe osteoporosis. In untreated patients, the risk of osteoporotic fracture increases approximately two-fold for each 1.0 SD decrease in T-score. Low bone density is not the only risk factor for fracture; also consider factors such as patient's age, frailty or poor health, risk of falling, risk of injury, previous osteoporotic fracture, family history of osteoporosis, cigarette smoking, low body weight, etc. Not everyone with low bone mineral density has osteoporosis; osteomalacia and other metabolic bone disorders should also be considered. Patients who have osteoporosis should be evaluated for specific diseases and conditions (secondary causes) that may cause or contribute to bone loss. The [place] [employer]ocrinologists (AACE) and National Osteoporosis Foundation (NOF) recommend pharmacologic intervention for all postmenopausal women whose T-score is in this range. The patient should follow a healthful lifestyle (good nutrition with adequate calcium and vitamin D, and appropriate weight-bearing exercise). Follow-Up: Consider a repeat BMD and Vertebral Fracture Assess
--- NOTE | ~2023-03-17 | MM_ITS ---
EXAMINATION: MM screening antione BI w tabby HISTORY: Screening mammogram, family history of breast cancer in her mother and sister. TECHNIQUE: Craniocaudal and mediolateral oblique 3-D tomosynthesis images were obtained and synthetic 2-D images were generated. CAD analysis was submitted and interpreted. COMPARISON: 06/18/2021, 11/25/2017 BREAST PARENCHYMAL COMPOSITION: There are scattered areas of fibroglandular density. FINDINGS: No suspicious mass, calcification, or architectural distortion are identified in either radha ast to suggest malignancy. There has been no suspicious interval change. IMPRESSION: 1. No mammographic evidence of malignancy. 2. Recommend routine screening mammography in one year. BI-RADS Category 1: Negative Reviewed, dictated and finalized at location A.
== END 2023-03-17 09:26 | disposition home or self-care (01) ==
LOC: ANHIMG 09:27
PROVIDERS: PCP Family Medicine; Visit Provider Physician Assistant
DX: Z12.31 Encounter for screening mammogram for malignant neoplasm of breast (principal); Z78.0 Asymptomatic menopausal state; M81.0 Age-related osteoporosis without current pathological fracture; M85.851 Other specified disorders of bone density and structure, right thigh
CPT/HCPCS: 77063; 77067; 77080

== ENCOUNTER 2023-04-05 08:24 | Outpatient (CLI) | payer MEDICARE, SELFPAY ==
[2023-04-05 09:00] LABS: Basophils Percent Auto 0.5 % (0.2-1.2); Eosinophils Absolute Auto 0.3 K/mm3 (0-0.3); Eosinophils Percent Auto 4.3 % (0-4.4); Hematocrit 39.8 % (37.0-47.0); Hemoglobin 12.9 g/dL (12.0-15.0); Immature Granulocyte Absolute 0.02 K/mm3 (0.00-0.031); Immature Granulocyte Percent A 0.3 % (0-0.5); Lymphocytes Absolute Auto 1.62 K/mm3 (0.9-3.2); Lymphocytes Percent Auto 28.1 % (18.3-44.2); Mean Corpuscular HGB Conc 32.4 g/dl (32-36); Mean Corpuscular Hemoglobin 32.1 pg (26-34); Mean Platelet Volume 9.7 fl (7.4-10.4); Monocytes Absolute Auto 0.6 K/mm3 (0.1-0.6); Monocytes Percent Auto 10.4 % (2.6-8.5); Neutrophils Absolute Auto 3.2 K/mm3 (1.3-6.7); Neutrophils Percent Auto 56.4 % (45.5-73.1); Platelet Count Result 247 k/mm3 (150-375); Red Blood Count 4.02 M/mm3 (4.2-5.4); Red Cell Distribution Width 13.1 % (11.5-14.5); White Blood Count 5.8 K/mm3 (4.5-10.0)
[2023-04-05 09:13] LABS: Alanine Aminotransferase 34 U/L (6-35); Albumin Level 4.1 g/dL (3.5-5.1); Alkaline Phosphatase 79 U/L (38-126); Anion Gap 3 mmol/L (8-16); Aspartate Amino Transferase 42 U/L (14-36); Bilirubin,Total 0.5 mg/dL (0.2-1.3); Blood Urea Nitrogen 11 mg/dL (7-17); Calcium 8.7 mg/dL (8.4-10.2); Carbon Dioxide 31 mmol/L (22-30); Chloride 108 mmol/L (98-107); Estimated Glomerular Filt Rate > 60; Glucose 75 mg/dL (65-110); Potassium 3.7 mmol/L (3.4-5.0); Sodium 142 mmol/L (137-145)
[2023-04-05 09:42] LABS: Thyroid Stimulating Hormone 0.622 uIU/mL (0.465-4.680); Total Triiodothyronine (T3) 1.27 NG/ML (0.97-1.69)
[2023-04-07 14:12] LABS: ANA Cascade Screen Negative (Negative)
[2023-04-10 00:10] LABS: Vitamin D 1,25 (OH)2 Total 61 pg/mL (18-72); Vitamin D2 1,25 (OH)2 <8 pg/mL; Vitamin D3 1,25 (OH)2 61 pg/mL
== END 2023-04-05 08:25 | disposition home or self-care (01) ==
PROVIDERS: PCP Family Medicine; Visit Provider Nurse Practitioner Gerontology
DX: E55.9 Vitamin D deficiency, unspecified (principal); L29.9 Pruritus, unspecified; L50.0 Allergic urticaria; T50.905A Adverse effect of unspecified drugs, medicaments and biological substances, initial encounter; E53.8 Deficiency of other specified B group vitamins; R79.89 Other specified abnormal findings of blood chemistry; D64.9 Anemia, unspecified; F41.9 Anxiety disorder, unspecified; E03.9 Hypothyroidism, unspecified; L29.8 Other pruritus; M54.9 Dorsalgia, unspecified
CPT/HCPCS: 36415; 80053; 82607; 82652; 84439; 84443; 84480; 85025; 86038

== ENCOUNTER 2023-05-20 11:00 | Outpatient (CLI) | payer MEDICARE, SELFPAY ==
[2023-05-20 11:37] LABS: Basophils Percent Auto 0.5 % (0.2-1.2); Eosinophils Absolute Auto 0.2 K/mm3 (0-0.3); Eosinophils Percent Auto 2.9 % (0-4.4); Hematocrit 39.4 % (37.0-47.0); Hemoglobin 12.7 g/dL (12.0-15.0); Immature Granulocyte Absolute 0.01 K/mm3 (0.00-0.031); Immature Granulocyte Percent A 0.2 % (0-0.5); Lymphocytes Absolute Auto 1.25 K/mm3 (0.9-3.2); Lymphocytes Percent Auto 22.8 % (18.3-44.2); Mean Corpuscular HGB Conc 32.2 g/dl (32-36); Mean Corpuscular Hemoglobin 31.2 pg (26-34); Mean Corpuscular Volume 96.8 fl (80-100); Mean Platelet Volume 10.1 fl (7.4-10.4); Monocytes Absolute Auto 0.5 K/mm3 (0.1-0.6); Monocytes Percent Auto 8.6 % (2.6-8.5); Neutrophils Absolute Auto 3.6 K/mm3 (1.3-6.7); Platelet Count Result 252 k/mm3 (150-375); Red Blood Count 4.07 M/mm3 (4.2-5.4); Red Cell Distribution Width 13.1 % (11.5-14.5); White Blood Count 5.5 K/mm3 (4.5-10.0)
[2023-05-20 12:26] LABS: Thyroid Stimulating Hormone Reflex 0.364 uIU/mL (0.465-4.68)
[2023-05-20 13:24] LABS: Free T4 Free Thyroxine Reflex 1.58 ng/dL (0.78-2.19)
[2023-05-20 14:56] LABS: Total Triiodothyronine (T3) 1.47 NG/ML (0.97-1.69)
== END 2023-05-20 11:01 | disposition home or self-care (01) ==
PROVIDERS: PCP Family Medicine; Visit Provider Physician Assistant
DX: E53.8 Deficiency of other specified B group vitamins (principal); D64.9 Anemia, unspecified; E03.9 Hypothyroidism, unspecified
CPT/HCPCS: 36415; 82607; 84439; 84443; 84480; 85025

== ENCOUNTER 2023-07-21 10:05 | Outpatient (CLI) | payer MEDICARE, SELFPAY ==
[2023-07-21 11:30] LABS: Free T4 Free Thyroxine 1.14 ng/mL (0.78-2.19)
[2023-07-25 18:06] LABS: Triiodothyronine T3 Free 2.9 pg/mL (2.3-4.2)
== END 2023-07-21 10:06 | disposition home or self-care (01) ==
LOC: ANHLAB 10:07
PROVIDERS: PCP Family Medicine; Visit Provider Physician Assistant
DX: E07.9 Disorder of thyroid, unspecified (principal); E03.9 Hypothyroidism, unspecified
CPT/HCPCS: 36415; 84439; 84443; 84481

== ENCOUNTER 2023-10-16 08:52 | Outpatient (CLI) | payer MEDICARE, SELFPAY ==
[2023-10-16 10:02] LABS: Cholesterol 205 mg/dL (0-200); HDL Direct 58 mg/dL; Triglycerides 76 mg/dL (<150)
[2023-10-16 10:14] LABS: LDL Cholesterol Direct 115 mg/dL
== END 2023-10-16 08:53 | disposition home or self-care (01) ==
LOC: ANHLAB 08:54
PROVIDERS: PCP Family Medicine; Visit Provider Internal Medicine Cardiovascular Disease
DX: I10 Essential (primary) hypertension (principal)
CPT/HCPCS: 36415; 80061

== ENCOUNTER 2024-01-05 10:45 | Outpatient (CLI) | payer MEDICARE, SELFPAY ==
[2024-01-05 11:12] LABS: Basophils Absolute Auto 0.1 K/mm3 (0.0-0.1); Basophils Percent Auto 0.8 % (0.2-1.2); Eosinophils Absolute Auto 0.1 K/mm3 (0-0.3); Eosinophils Percent Auto 1.6 % (0-4.4); Hematocrit 41.3 % (37.0-47.0); Hemoglobin 13.5 g/dL (12.0-15.0); Immature Granulocyte Absolute 0.01 K/mm3 (0.00-0.031); Immature Granulocyte Percent A 0.2 % (0-0.5); Lymphocytes Absolute Auto 2.02 K/mm3 (0.9-3.2); Lymphocytes Percent Auto 31.7 % (18.3-44.2); Mean Corpuscular HGB Conc 32.7 g/dl (32-36); Mean Corpuscular Hemoglobin 31.8 pg (26-34); Mean Corpuscular Volume 97.2 fl (80-100); Mean Platelet Volume 9.7 fl (7.4-10.4); Monocytes Absolute Auto 0.4 K/mm3 (0.1-0.6); Monocytes Percent Auto 6.3 % (2.6-8.5); Neutrophils Absolute Auto 3.8 K/mm3 (1.3-6.7); Neutrophils Percent Auto 59.4 % (45.5-73.1); Platelet Count Result 254 k/mm3 (150-375); Red Blood Count 4.25 M/mm3 (4.2-5.4); Red Cell Distribution Width 12.1 % (11.5-14.5); White Blood Count 6.4 K/mm3 (4.5-10.0)
[2024-01-05 11:27] LABS: Alanine Aminotransferase 18 U/L (6-35); Albumin Level 4.2 g/dL (3.5-5.1); Alkaline Phosphatase 101 U/L (38-126); Anion Gap 4 mmol/L (8-16); Aspartate Amino Transferase 33 U/L (14-36); Bilirubin,Total 0.7 mg/dL (0.2-1.3); Blood Urea Nitrogen 12 mg/dL (7-17); Calcium 9.2 mg/dL (8.4-10.2); Carbon Dioxide 29 mmol/L (22-30); Chloride 108 mmol/L (98-107); Cholesterol 169 mg/dL (0-200); Estimated Glomerular Filt Rate > 60; Glucose 90 mg/dL (65-110); HDL Direct 57 mg/dL; Potassium 4.2 mmol/L (3.4-5.0); Sodium 141 mmol/L (137-145); Triglycerides 76 mg/dL (<150)
[2024-01-05 11:38] LABS: LDL Cholesterol Direct 94 mg/dL
[2024-01-05 11:49] LABS: Iron 116 ug/dL (37-170)
[2024-01-05 12:00] LABS: Percent Iron Saturation 41 % (20-50)
[2024-01-05 12:07] LABS: Free T4 Free Thyroxine 1.18 ng/mL (0.78-2.19)
[2024-01-08 07:47] LABS: Triiodothyronine T3 Free 2.5 pg/mL (2.3-4.2)
== END 2024-01-05 10:46 | disposition home or self-care (01) ==
PROVIDERS: PCP Family Medicine; Visit Provider Physician Assistant
DX: D64.9 Anemia, unspecified (principal); E03.9 Hypothyroidism, unspecified; E53.8 Deficiency of other specified B group vitamins; R79.89 Other specified abnormal findings of blood chemistry; E07.9 Disorder of thyroid, unspecified; I10 Essential (primary) hypertension; I51.9 Heart disease, unspecified; Z13.220 Encounter for screening for lipoid disorders
CPT/HCPCS: 36415; 80053; 80061; 82607; 83540; 83550; 84439; 84443; 84481; 85025

== ENCOUNTER 2024-01-20 09:48 | Outpatient (CLI) | payer MEDICARE, SELFPAY ==
--- NOTE | 2024-01-20 10:01 | EST_ITS ---
Patient Info Name: Neyda Black Age: 68 years : 1955 Gender: Female Ht: 62 in Wt: 134 lbs BSA: 1.64 m2 HR: 83 bpm BP: 144 / 78 mmHg Heart Rhythm: Sinus Rhythm Exam Date: 01/20/2024 10:45 AM Exam Location: Echo Lab Patient Status: Outpatient Admit Date: 01/20/2024 Staff Ordering Physician: Jamaal Gupta DO Attending Provider: Jamaal Gupta DO Exercise Technologist: Mojgan Teran CT Exercise Physician: Jamaal Gupta DO Exam Type: CA stress test treadmill Study Info Indications R07.89 - Other chest pain A treadmill exercise stress test was performed. Summary 1. 1. Negative Esvin exercise stress test for ischemic ST changes by ECG criteria. 2. 2. Good functional capacity, achieving 7 METs of workload. 3. 3. Baseline hypertension. 4. 4. Appropriate HR response to exercise. 5. 5. Appropriate HR recovery at 1 minute post exercise. 6. 6. No imaging with stress testing. 7. 7. Patient informed of the above results. Protocol: Esvin Stress ECG Details Stage: REST Duration (min): 1 min : 17 sec Speed (mph): 0.0 Grade (%): 0 HR (bpm): 66 SBP (mmHg): 151 DBP (mmHg): 89 METS: --- Stage: REST Duration (min): 5 min : 27 sec Speed (mph): 0.0 Grade (%): 0 HR (bpm): 71 SBP (mmHg): 151 DBP (mmHg): 89 METS: --- Stage: STAGE 1 Duration (min): 1 min : 0 sec Speed (mph): 1.7 Grade (%): 10 HR (bpm): 97 SBP (mmHg): 151 DBP (mmHg): 89 METS: --- Stage: STAGE 1 Duration (min): 2 min : 0 sec Speed (mph): 1.7 Grade (%): 10 HR (bpm): 113 SBP (mmHg): 151 DBP (mmHg): 89 METS: --- Stage: STAGE 1 Duration (min): 3 min : 0 sec Speed (mph): 1.7 Grade (%): 10 HR (bpm): 108 SBP (mmHg): 181 DBP (mmHg): 87 METS: --- Stage: STAGE 2 Duration (min): 1 min : 0 sec Speed (mph): 2.5 Grade (%): 12 HR (bpm): 119 SBP (mmHg): 181 DBP (mmHg): 87 METS: --- Stage: STAGE 2 Duration (min): 2 min : 0 sec Speed (mph): 2.5 Grade (%): 12 HR (bpm): 125 SBP (mmHg): 169 DBP (mmHg): 88 METS: --- Stage: STAGE 2 Duration (min): 3 min : 0 sec Speed (mph): 2.5 Grade (%): 12 HR (bpm): 129 SBP (mmHg): 169 DBP (mmHg): 88 METS: --- Stage: RECOVERY Duration (min): 0 min : 59 sec Speed (mph): 0.0 Grade (%): 0 HR (bpm): 81 SBP (mmHg): 134 DBP (mmHg): 99 METS: --- Stage: RECOVERY Duration (min): 1 min : 59 sec Speed (mph): 0.0 Grade (%): 0 HR (bpm): 75 SBP (mmHg): 134 DBP (mmHg): 99 METS: --- Stage: RECOVERY Duration (min): 2 min : 6 sec Speed (mph): 0.0 Grade (%): 0 HR (bpm): 75 SBP (mmHg): 134 DBP (mmHg): 99 METS: --- Rest HR: 71 bpm Peak HR: 129 bpm Rest Sys BP: 151 mmHg Peak Sys BP: 181 mmHg Max Pred HR: 151 bpm % Max Pred HR: 85 % Target HR: 128 bpm Max RPP: 23,349 bpm*mmHg Abraham Score: 2 Termination Reason: Reached target heart rate or workload Cardiac Symptoms: Shortness of breath Max ST Seg Deviation: 0.80 mm Total Time: 6 m
== END 2024-01-20 09:49 | disposition home or self-care (01) ==
LOC: ANHCARD 09:48
PROVIDERS: PCP Family Medicine; Visit Provider Internal Medicine Cardiovascular Disease
DX: R07.89 Other chest pain (principal); I10 Essential (primary) hypertension
CPT/HCPCS: 93017

== ENCOUNTER 2024-04-06 19:25 | Emergency (ER) | payer MEDICARE, SELFPAY ==
[2024-04-06] VITALS (10 sets, daily range): BP systolic 138–183; BP diastolic 69–109; PULSE 63–74; RESP 12–21; TEMP 36.6; O2SAT 96–100
--- NOTE | ~2024-04-06 | CT_ITS ---
CT abdomen pelvis w con Ordering provider: Caleb Mcnamara History: . LUQ Pain . Comparison: February 10, 2021 Technique: CT abdomen with IV and without oral contrast. Radiation reduction technique utilized. Findings: VISUALIZED LOWER CHEST: Dependent atelectatic changes. Nodule in the right lower lobe area measuring 4 mm. UPPER ABDOMINAL ORGANS: Liver: Fatty infiltration. Area of enhancement seen in the area of the portal vein which may indicate communication between the portal and hepatic veins. Enhancing lesions less likely. Gallbladder: Normal. Spleen: Normal. Stomach/duodenum: Small sliding hiatus hernia. Pancreas: Normal. Adrenals: Normal. Kidneys: Tiny cysts in the right kidney lower pole. Bladder: Normal. Uterus: Normal. VISUALIZED BOWEL AND MESENTERY: Fat stranding is seen in the right hepatic flexure area with divertic ulitis. No evidence of appendicitis. The bowel is otherwise normal. No free air or free fluid. No mes enteric lymphadenopathy. RETROPERITONEUM: Mild atheromatous disease of the abdominal aorta. No retroperitoneal lymphadenopathy . MUSCULOSKELETAL: The superficial soft tissues are normal. Age appropriate degenerative changes of the spine. IMPRESSION: Diverticulitis in the right side of the transverse colon in the abdomen the hepatic flexure Nodule in the right lower lobe of the lung measuring 4 mm. 1 year follow-up is advised. Small sliding hiatus hernia. Reviewed, dictated and finalized at location A. IMPRESSION: Diverticulitis in the right side of the transverse colon in the abdomen the hep atic flexure Nodule in the right lower lobe of the lung measuring 4 mm. 1 year follow-up is advised. Small sliding hiatus hernia.
--- NOTE | 2024-04-06 19:33 | ECG_ITS ---
[facility] [address] Test Date: 2024-04-06 Pat Name: Neyda Black Department: Room: Gender: F Hollock Maker: : 1955 Requested By: Caleb Moeller Order Number: [id number] Tammy MD: Marco Iniguez M.D. Measurements Intervals [place]ard Rate: 61 P: 20 ME: 136 QRS: 16 QRSD: 79 T: 93 QT: 416 QTc: 421 Interpretive Statements SINUS RHYTHM NONSPECIFIC T-WAVE ABNORMALITY LOW QRS VOLTAGE ABNORMAL ECG No previous ECG available for comparison Electronically Signed On 04-07-2024 09:03:11 CDT by Marco Iniguez M.D.
[2024-04-06 20:26] LABS: Appearance Urine Clear (Clear); Bilirubin Urine Negative (Negative); Blood Urine Negative (Negative); Color Urine Yellow (Yellow); Glucose Urine UA Negative (Negative); Ketones Urine Negative (Negative); Leukocyte Esterase Ur Negative LEU/UL (Negative); Nitrate Urine Negative (Negative); Protein Urine Negative (Negative); Specific Grav Ur 1.018 (1.001-1.035); Urobilinogen Urine 0.2 mg/dL (<2.0); pH Urine 5.5 (5.0-9.0)
[2024-04-06 20:26] LABS: Alanine Aminotransferase 19 U/L (6-35); Albumin Level 4.3 g/dL (3.5-5.1); Alkaline Phosphatase 98 U/L (38-126); Anion Gap 5 mmol/L (4-12); Aspartate Amino Transferase 30 U/L (14-36); Bilirubin,Total 0.5 mg/dL (0.2-1.3); Blood Urea Nitrogen 11 mg/dL (7-17); Calcium 9.1 mg/dL (8.4-10.2); Carbon Dioxide 26 mmol/L (22-30); Chloride 109 mmol/L (98-107); Estimated CRCL calculation 59 ml/min; Estimated Glomerular Filt Rate > 60; Glucose 90 mg/dL (65-110); Lipase 114 U/L (23-300); Potassium 3.9 mmol/L (3.4-5.0); Sodium 140 mmol/L (137-145)
[2024-04-06 20:27] LABS: Magnesium 2.3 mg/dL (1.6-2.3)
[2024-04-06 20:29] LABS: Basophils Absolute Auto 0.1 K/mm3 (0.0-0.1); Basophils Percent Auto 0.6 % (0.2-1.2); Eosinophils Absolute Auto 0.1 K/mm3 (0-0.3); Hemoglobin 12.9 g/dL (12.0-15.0); Immature Granulocyte Absolute 0.02 K/mm3 (0.00-0.031); Immature Granulocyte Percent A 0.2 % (0-0.5); Lymphocytes Absolute Auto 2.38 K/mm3 (0.9-3.2); Lymphocytes Percent Auto 28.8 % (18.3-44.2); Mean Corpuscular HGB Conc 32.3 g/dl (32-36); Mean Corpuscular Hemoglobin 31.9 pg (26-34); Mean Corpuscular Volume 98.8 fl (80-100); Mean Platelet Volume 10.1 fl (7.4-10.4); Monocytes Absolute Auto 0.5 K/mm3 (0.1-0.6); Monocytes Percent Auto 6.2 % (2.6-8.5); Neutrophils Absolute Auto 5.2 K/mm3 (1.3-6.7); Neutrophils Percent Auto 63.2 % (45.5-73.1); Platelet Count Result 288 k/mm3 (150-375); Red Blood Count 4.05 M/mm3 (4.2-5.4); Red Cell Distribution Width 12.7 % (11.5-14.5); White Blood Count 8.3 K/mm3 (4.5-10.0)
[2024-04-06 20:50] LABS: Influenza A QL RT-PCR Negative (Negative); Influenza B QL RT-PCR Negative (Negative); RSV RNA, RT-PCR Negative (Negative); SARS-CoV-2 RNA PCR Negative (Negative)
[2024-04-06 21:02] LABS: Add Urine Microscopic? NO
[2024-04-06 21:08] LABS: Lactic Acid Reflex 1.2 mmol/L (0.7-2.0)
--- NOTE | 2024-04-06 21:54 | ED.ABDPAIN ---
HPI - Abdominal Pain General Chief Complaint: Abdominal Pain Stated Complaint: multiple complaint Time Seen by Provider: 04/06/24 21:04 History of Present Illness HPI narrative: Patient is a 68-year-old female who presents to the emergency department this evening with multiple complaints. Patient states that she has been feeling off and funny since she woke up this morning. She states that she did have an episode where she felt lightheaded and felt as though her vision was but that episode has resolved. She is currently denying any lightheadedness, dizziness, room spinning sensation or changes to her vision. Patient states that she has been having diarrhea and nausea for the past few days and some left upper quadrant abdominal pain which she describes as burning in nature. She denies any vomiting episodes. Denies any chest pain or shortness of breath, and denies any focal weakness. No fevers or chills at home. No additional symptoms or concerns at this time. Related Data Allergies Allergy/AdvReac Type Severity Reaction Status Date / Time No Known Allergies Allergy Verified 04/06/24 19:31 Review of Systems Review of Systems: All systems are reviewed and are negative unless stated otherwise in the HPI. COUNT INCLUDES THE [facility] Past Medical History Medical History Anxiety Chronic pruritic rash in adult Colon cancer screening Depression Grade II diastolic dysfunction History of stress test (~2020) Hypothyroidism Screening for breast cancer TIA (transient ischemic attack) Urolithiasis Surgical History Surgical History H/O left wrist surgery History of appendectomy History of x2 History of tooth extraction History of tubal ligation History of urologic surgery Kidney Stone Removed Family History Family History Mother Lung cancer Sibling Bone cancer Heart disease History of hip replacement History of knee replacement Father Heart disease Social History Social History Social History: Smoking status: Never smoker Second hand tobacco smoke exposure: No Alcohol intake: never Substance use: never Substance use type: does not use Lack of Transportation: No Lack of Food: Never True Current Housing: I Have Housing Concerned About Future Housing: No Difficulty Paying Gas/Electric Bills: No Difficulty Paying for Meds: No Currently Unemployed: No Education: Bachelor's Degree Difficulty w/ Childcare or Family Care: No Living arrangements: with family Additional living arrangements comments: Pt lives with her daughter and her son in law. Occupation/Education: retired Gender identity (if verbalized by the patient): Female Sexual Orientation (if Verbalized by the Patient): Straight or Heterosexual Spiritual care concerns: No Exam Narrative: General: Alert, awake, afebrile, in no acute distress. HEENT: PERRL, no rhinorrhea, no post nasal drip, oropharynx clear. Cardiovascular: Regular rate and rhythm, no murmurs, rubs or gallops, no peripheral edema. Respiratory: Clear to auscultation bilaterally, no tachypnea, no wheezing, no rhonchi, no rubs, no respiratory distress. Abdomen: Soft, tenderness palpation over the left upper quadrant, nondistended, no rebound, no guarding, no peritoneal signs. Musculoskeletal: No joint swelling or deformity, normal muscle tone. Skin: No rashes or petechia, no signs of infection. Neurological: Alert and oriented to person, place, and time. Follows all commands. No focal deficits, speech is clear and fluent. Course Vital Signs Vital signs: Vital Signs Temperature 97.8 F 04/06/24 19:27 Pulse Rate 74 04/06/24 19:27 Respiratory Rate 20 04/06/24 19:27 Blood Pressure 166/109 H 04/06/24 19:27 Pulse
[2024-04-07 00:48] VITALS: BP 144/86; PULSE 68; RESP 15; O2SAT 100
== END 2024-04-07 00:49 | disposition home or self-care (01) ==
PROVIDERS: Emergency Provider Emergency Medicine; PCP Family Medicine
DX: K57.32 Diverticulitis of large intestine without perforation or abscess without bleeding (principal); I51.89 Other ill-defined heart diseases; E03.9 Hypothyroidism, unspecified; F41.9 Anxiety disorder, unspecified; Z86.73 Personal history of transient ischemic attack (TIA), and cerebral infarction without residual deficits; F32.A Depression, unspecified; Z87.442 Personal history of urinary calculi; Z79.899 Other long term (current) drug therapy; K44.9 Diaphragmatic hernia without obstruction or gangrene; R91.1 Solitary pulmonary nodule; R94.31 Abnormal electrocardiogram [ECG] [EKG]
CPT/HCPCS: 36415; 74177; 80053; 81003; 82248; 83605; 83690; 83735; 85025; 87637; 93005; 99284; Q9967

== ENCOUNTER 2024-04-10 09:54 | Outpatient (CLI) | payer MEDICARE, SELFPAY ==
[2024-04-10 10:26] LABS: Hematocrit 39.8 % (37.0-47.0); Mean Corpuscular HGB Conc 32.7 g/dl (32-36); Mean Corpuscular Hemoglobin 31.7 pg (26-34); Mean Corpuscular Volume 97.1 fl (80-100); Mean Platelet Volume 9.6 fl (7.4-10.4); Platelet Count Result 254 k/mm3 (150-375); Red Cell Distribution Width 12.8 % (11.5-14.5); White Blood Count 6.1 K/mm3 (4.5-10.0)
[2024-04-10 10:39] LABS: Alanine Aminotransferase 22 U/L (6-35); Albumin Level 4.3 g/dL (3.5-5.1); Alkaline Phosphatase 107 U/L (38-126); Anion Gap 6 mmol/L (4-12); Aspartate Amino Transferase 35 U/L (14-36); Bilirubin,Total 0.7 mg/dL (0.2-1.3); Blood Urea Nitrogen 9 mg/dL (7-17); CRP 0.8 mg/dL (<1.0); Carbon Dioxide 27 mmol/L (22-30); Chloride 108 mmol/L (98-107); Estimated Glomerular Filt Rate > 60; Glucose 90 mg/dL (65-110); Potassium 3.8 mmol/L (3.4-5.0); Sodium 141 mmol/L (137-145)
[2024-04-10 13:37] LABS: Erythrocyte Sedimentation Rate 29 mm/hr (0-20)
== END 2024-04-10 09:55 | disposition home or self-care (01) ==
LOC: ANHLAB 09:57
PROVIDERS: PCP Family Medicine; Visit Provider Nurse Practitioner
DX: K52.9 Noninfective gastroenteritis and colitis, unspecified (principal); K57.32 Diverticulitis of large intestine without perforation or abscess without bleeding; K92.1 Melena; R10.9 Unspecified abdominal pain; M54.9 Dorsalgia, unspecified; F41.9 Anxiety disorder, unspecified
CPT/HCPCS: 36415; 80053; 84443; 85027; 85652; 86140

== ENCOUNTER 2024-04-10 10:25 | Outpatient (CLI) | payer MEDICARE, SELFPAY ==
--- NOTE | ~2024-04-10 | CT_ITS ---
CT of the Abdomen and Pelvis: Indication: Diverticulitis Technique: 2.5 mm axial scans were obtained through the abdomen and pelvis following intravenous adm inistration of 100 cc of Omnipaque 350. Dose reduction technique was used on this scan by utilizing a utomated exposure control and iterative reconstruction technique. The dose-length product (DLP) was 3 60.58 mGy-cm. COMPARISON: 04/06/2024 Findings: Scans through the lung bases are unremarkable. The liver, spleen, pancreas, gallbladder, adrenals and kidneys are within normal limits. No evidence of aortic aneurysm. No lymphadenopathy. No bowel obstruction or bowel wall thickening. There is diverticulosis, without evidence of acute div erticulitis. Images through the pelvis were performed. Urinary bladder unremarkable. No adnexal mass seen. No asci angelina. Impression: No significant abnormalities seen. Mild diverticulitis of the hepatic flexure region appears to be re solved. Reviewed, dictated and finalized at [facility]. Impression: No significant abnormalities seen. Mild diverticulitis of the hepatic flexure r egion appears to be resolved.
== END 2024-04-10 10:26 | disposition home or self-care (01) ==
LOC: ANHIMG 10:26
PROVIDERS: PCP Family Medicine; Visit Provider Nurse Practitioner
DX: K57.33 Diverticulitis of large intestine without perforation or abscess with bleeding (principal); K57.32 Diverticulitis of large intestine without perforation or abscess without bleeding; R10.9 Unspecified abdominal pain; K52.9 Noninfective gastroenteritis and colitis, unspecified; K92.1 Melena
CPT/HCPCS: 36415; 74177; 80053; 84443; 85027; 85652; 86140; Q9967

== ENCOUNTER 2024-04-11 07:39 | Outpatient (CLI) | payer MEDICARE, SELFPAY ==
[2024-04-11 12:22] LABS: Toxigenic C. Diff NEGATIVE (NEGATIVE)
[2024-04-16 18:57] LABS: Calprotectin, Stool 23 mcg/g
== END 2024-04-11 07:40 | disposition home or self-care (01) ==
LOC: ANHLAB 07:41
PROVIDERS: PCP Family Medicine; Visit Provider Nurse Practitioner
DX: K57.32 Diverticulitis of large intestine without perforation or abscess without bleeding (principal); K92.1 Melena; K52.9 Noninfective gastroenteritis and colitis, unspecified; R10.9 Unspecified abdominal pain
CPT/HCPCS: 83993; 87045; 87269; 87427; 87449; 87493

== ENCOUNTER 2024-05-25 09:57 | Outpatient (CLI) | payer MEDICARE, SELFPAY ==
--- NOTE | ~2024-05-25 | US_ITS ---
US abdomen limited INDICATION: Upper abdominal PROCEDURE: Realtime right upper abdominal ultrasound. COMPARISON: No prior studies for comparison. FINDINGS: The pancreas is normal without focal mass or pancreatic ductal dilation. Liver echotexture is normal without focal mass or intrahepatic biliary dilatation. There is normal directional flow i n the portal vein. The gallbladder is normal without stones, gallbladder wall thickening or pericholecystic fluid. Comm on bile duct measures 4 mm. No sonographic Moran's sign. IMPRESSION: 1: Normal limited abdominal ultrasound. Reviewed, dictated and finalized at location B.
== END 2024-05-25 09:58 | disposition home or self-care (01) ==
PROVIDERS: PCP Family Medicine; Visit Provider Nurse Practitioner
DX: R93.2 Abnormal findings on diagnostic imaging of liver and biliary tract (principal); R10.10 Upper abdominal pain, unspecified; R11.0 Nausea
CPT/HCPCS: 76705

== ENCOUNTER 2024-08-07 01:22 | Day surgery (SDC) | payer MEDICARE, SELFPAY ==
[2024-07-25 13:46] VITALS: BMI 23.8
[2024-08-07 13:14] VITALS: BP 139/74; PULSE 73; RESP 20; TEMP 36.1; O2SAT 100; BMI 23.1
[2024-08-07] MEDS: LACTATED RINGERS 1,000 ML 150 ML IV CONT (13:38)
--- NOTE | 2024-08-07 13:52 | WPDANESEPPF ---
Anes - Initial Pre Proc Eval Procedure: Operation Date: 08/07/24 14:30 Proposed Procedures p Esophagogastroduodenoscopy & Colonoscopy - Jaison Cassidy MD Date/Time: 08/07/24 13:52 Surgeon: Jaison Cassidy MD Pre Op Diagnosis: Melena,Nausea, abd. pain Patient Data Age: 69 Gender: F Height: 1.57 m Weight: 57.2 kg Last Vital Signs Temp 36.1 C L 08/07/24 13:14 Pulse 73 08/07/24 13:14 Resp 20 08/07/24 13:14 BP 139/74 08/07/24 13:14 Pulse Ox 100 08/07/24 13:14 O2 Del Method Room Air 08/07/24 13:14 Allergies Allergy/AdvReac Type Severity Reaction Status Date / Time No Known Allergies Allergy Verified 08/07/24 13:13 Home Medications Medication Instructions Recorded Confirmed Type cyanocobalamin (vitamin B-12) 500 1,000 mcg PO DAILY #100 ea 01/06/24 08/07/24 Rx mcg lozenges sertraline 25 mg tablet See Rx Instructions .Route 04/19/24 08/07/24 Rx .COMPLEX #90 tabs losartan 100 mg tablet 100 mg PO DAILY #90 tabs 04/24/24 08/07/24 Rx omeprazole 40 mg capsule,delayed 40 mg PO DAILY #30 caps 05/08/24 08/07/24 Rx release levothyroxine 50 mcg tablet See Rx Instructions .Route 05/16/24 08/07/24 Rx .COMPLEX #90 tabs docusate sodium 50 mg capsule 50 mg PO DAILY 07/25/24 08/07/24 History Patient hx anesthesia problems: none Family hx anesthesia problems: none Results Review: All pre-operative results and documents have been reviewed as part of the pre-operative evaluation. [facility] Past Medical History Medical History Anxiety Chronic pruritic rash in adult Colon cancer screening Depression Grade II diastolic dysfunction History of stress test (~2020) Hypothyroidism Screening for breast cancer TIA (transient ischemic attack) Urolithiasis Surgical History Surgical History H/O left wrist surgery History of appendectomy History of x2 History of tooth extraction History of tubal ligation History of urologic surgery Kidney Stone Removed Family History Family History Mother Lung cancer Sibling Bone cancer Heart disease History of hip replacement History of knee replacement Father Heart disease Social History Social History Social History: Smoking status: Never smoker Second hand tobacco smoke exposure: No Alcohol intake: never Substance use: never Substance use type: does not use Lack of Transportation: No Lack of Food: Never True Current Housing: I Have Housing Concerned About Future Housing: No Difficulty Paying Gas/Electric Bills: No Difficulty Paying for Meds: No Currently Unemployed: No Education: Bachelor's Degree Difficulty w/ Childcare or Family Care: No Living arrangements: with family Additional living arrangements comments: Pt lives with her daughter and her son in law. Occupation/Education: retired Gender identity (if verbalized by the patient): Female Sexual Orientation (if Verbalized by the Patient): Straight or Heterosexual Spiritual care concerns: No Anes - Eval Final PreProcedure Day of Procedure 08/07/24 13:52 Patient weight: normal Heart: regular rate and rhythm Lungs: clear to auscultation Airway: Mallampati scale class II Neurological: alert and oriented Last oral intake: >/= 8 hours ASA classification: III Emergent: no Anesthetic plan: proceed Anesthesia type and monitoring: general GIVS and standard monitoring Results Review: All pre-operative results and documents have been reviewed as part of the pre-operative evaluation. Informed Consent: The patient's anesthetic plan and its attendant risks and benefits were discussed with the patient/family/POA. Questions were solicited and answers provided to the satisfaction of the
--- NOTE | 2024-08-07 13:58 | WPDHPUPDATE1 ---
History and Physical Update Update Date/Time: 08/07/24 13:58 History and Physical has been reviewed, including an updated exam of the patient. There are NO changes in the patient's condition. Risks, benefits, and alternatives have been discussed and questions answered. Patient agrees to proceed with procedure.
--- NOTE | 2024-08-07 14:21 | SUR.OPER ---
EGD end 1417 COLONSCOPY START 1421
[2024-08-07 14:36] VITALS: BP 115/70; PULSE 79; RESP 14; O2SAT 100
[2024-08-07 14:46] VITALS: BP 125/70; PULSE 65; RESP 14; O2SAT 100
[2024-08-07 14:56] VITALS: BP 141/78; PULSE 64; RESP 16; O2SAT 100
== END 2024-08-07 15:04 | disposition home or self-care (01) ==
PROVIDERS: PCP Physician Assistant; Referring Provider Nurse Practitioner; Visit Provider Internal Medicine Gastroenterology
PROC: 0DJ08ZZ Inspection of Upper Intestinal Tract, Via Natural or Artificial Opening Endoscopic (ICD-10-PCS; CPT 43235; principal; 2024-08-07 14:30)
DX: K29.50 Unspecified chronic gastritis without bleeding (principal); K64.8 Other hemorrhoids; K64.4 Residual hemorrhoidal skin tags; K57.30 Diverticulosis of large intestine without perforation or abscess without bleeding; F41.9 Anxiety disorder, unspecified; F32.A Depression, unspecified; E03.9 Hypothyroidism, unspecified; L29.9 Pruritus, unspecified; I50.30 Unspecified diastolic (congestive) heart failure; Z98.890 Other specified postprocedural states; Z98.51 Tubal ligation status; Z87.442 Personal history of urinary calculi; Z86.73 Personal history of transient ischemic attack (TIA), and cerebral infarction without residual deficits; Z80.1 Family history of malignant neoplasm of trachea, bronchus and lung; Z80.8 Family history of malignant neoplasm of other organs or systems; Z82.49 Family history of ischemic heart disease and other diseases of the circulatory system
CPT/HCPCS: 43239; 45378; 88305; J2003; J2704; J7120

== ENCOUNTER 2025-05-22 09:00 | Outpatient (CLI) | payer MEDICARE, SELFPAY ==
--- OUTSIDE RECORDS SUMMARY | 2025-05-22 09:06 | XMS_ITS | Clinical Summary ---
Author Organization [facility] [employer] Address [address] [facility] [place] [address] Care Team Providers Care Welder Pipe Making Name Role Phone Darlene Miller [employer] INTERN Primary Care Provider Source Comments [employer],non-owned Affiliates and Associated Physician Practices is amultiple site organization consisting of ambulatory clinics and hospital sitesin [place], [place], [place] and [place]. This disclosure is being madepursuant to the Care Everywhere program and may not contain all information available regarding this patient. Last updated [address] Allergies No known active allergies Medications * Be aware that medications may not be up to date on this document. Alwaysverify current medications with the patient. levothyroxine (SYNTHROID) 50 MCG tablet Take 50 mcg by mouth daily before breakfast. Active traZODone (DESYREL) 50 MG tablet Take 25 mg by mouth at bedtime. Active ibuprofen (MOTRIN) 600 MG tablet Take 1 Tab by mouth every 6 hours as needed for Pain. 20 Tab 0 09/10/2012 Active Social History Tobacco Use Types Packs/Day Years Used Date Smoking Tobacco: Never Alcohol Use Standard Drinks/Week Comments No 0 (1 standard drink = 0.6 oz pur e alcohol) Comments Unknown Sex and Gender Information Value Date Recorded Sex Assigned at Not on file Legal Sex Female 8:40 AM FINAL OPERATIONS TECHNICIAN Gender Identity Not on file Sexual Orientation Not on file Last Filed Vital Signs Vital Sign Reading Time Taken Comments Blood Pressure 109/88 09/10/2012 4:20 PM FINAL OPERATIONS TECHNICIAN Pulse 77 09/10/2012 4:20 PM FINAL OPERATIONS TECHNICIAN Temperature 36.5 C (97.7 F) 09/10/2012 4:20 PM FINAL OPERATIONS TECHNICIAN Respiratory Rate 21 09/10/2012 4:20 PM FINAL OPERATIONS TECHNICIAN Oxygen Saturation 99% 09/10/2012 4:20 PM FINAL OPERATIONS TECHNICIAN Inhaled Oxygen Concentration - - Weight 58.1 kg (128 lb) 09/10/2012 1:39 PM FINAL OPERATIONS TECHNICIAN Height 157.5 cm (5' 2) 09/10/2012 1:39 PM FINAL OPERATIONS TECHNICIAN Body Mass Index 23.41 09/10/2012 1:39 PM FINAL OPERATIONS TECHNICIAN Plan of Treatment Health Maintenance Due Date Last Done Comments BONE DENSITY TESTING 1955 COLOGUARD (AGES 45-75) - COL ON CA SCREENING 1955 COLON MONITORING 1955 COLONOSCOPY - COLON CA SCREENING 1955 CT COLONOGRAPHY - COLON CA SCREENING 1955 Colorectal Cancer Screening 1955 FIT - COLON CA SCREENING 1955 FLEX SIG - COLON CA SCREENING 1955 LIPID TESTING 1955 MAMMOGRAM 1955 MEDICARE AWV 12 MONTHS 1955 HEPATITIS C SCREENING 06/25/1972 DTAP/TDAP/TD VACCINES (1 - Tdap) 1973 PNEUMOCOCCAL VACCINE 50+ (1 of 1 - PCV) 2004 ZOSTER VACCINE (1 of 2) 2004 COVID-19 VACCINE ( - 2023-2 5 season) 2024 DEPRESSION SCREENING 11/01/2024 INFLUENZA VACCINE (#1) 2025 Respiratory Syncytial Virus (RSV) Vaccine Pt: or over 60 yrs (1 - 1-dose 75+ series) 2029 HEPATITIS B VACCINE Aged Out No longe r eligible based on patient's age to complete this topic HIB VACCINE Aged Out No longer eligi ble based on patient's age to complete this topic HPV VACCINE Aged Out No longer eligi ble based on patient's age to complete this topic MENINGOCOCCAL (Group B) VACC INE SHARED DECISION-MAKING Aged Out No longer eligibl e based on patient's age to complete this topic MENINGOCOCCAL GROUPS A/C/Y/W VACCINE Aged Out No longer eligible b ased on patient's age to complete this topic Insurance MEDICARE [facility] MEDICARE [facility] SELF PAY NO INSURANCE Member Subscriber Plan / Payer (Ef fective for All Dates) Name:Shade Helms Member ID:Not on file Relation to Subscriber:Not on file Name:SHADE HELMS Subscriber ID:Not on file (Home) Address: [address] [place] [id number] Payer ID:Not on file Group ID:Not on file Type:Self Pay Address: [place], [place] Care Teams Welder Pipe Making Relationship Specialty Start Date End Date Darlene Miller, [employer] INTERN [address] [place] [id number] PCP - General 10/08/21
--- OUTSIDE RECORDS SUMMARY | 2025-05-22 09:06 | XMS_ITS | Clinical Summary ---
Author Organization [facility] Address [address] [place] [id number] Care Team Providers Care Sterile Tech Name Role Phone Paul Darlene S DIALYSIS RN Primary Care Provider Social History Tobacco Use Types Packs/Day Years Used Date Smoking Tobacco: Never Assessed Comments Unknown Sex and Gender Information Value Date Recorded Sex Assigned at Not on file Legal Sex Female 8:18 PM CDT Gender Identity Not on file Sexual Orientation Not on file Plan of Treatment Health Maintenance Due Date Last Done Comments Colorectal Cancer Screening Colonoscopy (10 Years) 1955 Hepatitis C 1972 Mammogram Screening 1994 Zoster Vaccines (1 of 2) 2004 Annual Medicare Wellness Visit 2019 Dexa Scan (General) 2019 Pneumococcal Vaccine: 50+ Ye ars (2 of 2 - PPSV23) 09/07/2021 09/07/2020 COVID-19 Vaccine (1 - 2023-2 5 season) 2024 DTaP, Tdap and Td Vaccines ( 2 - Td or Tdap) 06/23/2026 06/23/2016 RSV Immunization or 60+ Years (1 - 1-dose 75+ series) 2029 Meningococcal B Vaccine Aged Out No l onger eligible based on patient's age to complete this topic Meningococcal Vaccine Aged Out No rashid kyle eligible based on patient's age to complete this topic RSV Immunizations Under 20 Months Aged Out No longer eligible based on patient's age to complete this topic Insurance MEDICARE A[employer] Care Teams Sterile Tech Relationship Specialty Start Date End Date Darlene Miller [place] [address] PCP - General NURSE PRACTITIONER 08/26/21
[2025-05-22 09:21] LABS: Hematocrit 40.2 % (37.0-47.0); Hemoglobin 13.4 g/dL (12.0-15.0); Immature Granulocyte Percent A 0.4 % (0-0.5); Lymphocytes Absolute Auto 1.85 K/mm3 (0.9-3.2); Mean Corpuscular HGB Conc 33.3 g/dl (32-36); Mean Corpuscular Hemoglobin 31.7 pg (26-34); Mean Corpuscular Volume 95.0 fl (80-100); Nucleated Red Blood Cells Absolute Auto 0.000 K/mm3 (0.0-0.012); Nucleated Red Blood Cells Perc 0.0 % (0.0-0.2); Platelet Count Result 234 k/mm3 (150-375); Red Blood Count 4.23 M/mm3 (4.2-5.4); White Blood Count 5.7 K/mm3 (4.5-10.0)
[2025-05-22 09:59] LABS: Alanine Aminotransferase 15 U/L (6-35); Albumin Level 4.0 g/dL (3.5-5.1); Alkaline Phosphatase 95 U/L (38-126); Anion Gap 4 mmol/L (4-12); Aspartate Amino Transferase 36 U/L (14-36); Bilirubin,Total 0.5 mg/dL (0.2-1.3); Blood Urea Nitrogen 9 mg/dL (7-17); Calcium 9.1 mg/dL (8.4-10.2); Carbon Dioxide 27 mmol/L (22-30); Chloride 107 mmol/L (98-107); Cholesterol 172 mg/dL (0-200); Estimated Glomerular Filt Rate > 60; Glucose 84 mg/dL (65-110); HDL Direct 62 mg/dL; Potassium 4.0 mmol/L (3.4-5.0); Sodium 138 mmol/L (137-145); Total Protein 6.8 g/dL (6.3-8.2); Triglycerides 55 mg/dL (<150)
[2025-05-22 10:15] LABS: Free T4 Free Thyroxine 0.98 ng/dL (0.78-2.19)
[2025-05-22 10:34] LABS: Thyroid Stimulating Hormone 2.350 uIU/mL (0.465-4.680)
[2025-05-22 10:56] LABS: Vitamin B12 > 1000.0 pg/mL (239-931)
== END 2025-05-22 09:01 | disposition home or self-care (01) ==
LOC: ANHLAB 09:02
PROVIDERS: PCP Family Medicine
DX: E03.9 Hypothyroidism, unspecified (principal); I10 Essential (primary) hypertension; E53.8 Deficiency of other specified B group vitamins; D64.9 Anemia, unspecified
CPT/HCPCS: 36415; 80053; 80061; 82607; 84439; 84443; 85025

== ENCOUNTER 2025-09-04 03:40 | Emergency (ER) | payer MEDICARE, SELFPAY ==
--- NOTE | ~2025-09-04 | CT_ITS ---
CT ABDOMEN AND PELVIS WITHOUT CONTRAST Clinical History: R flank pain, dysuria Comparison: 04/10/2024 Technique: Unenhanced axial images lung bases to symphysis pubis Coronal, sagittal reformats CT images acquired with automatic exposure control for dose reduction DLP: 291 mGy-cm Findings: Without intravenous contrast, sensitivity for detecting visceral parenchymal abnormalities decreased. Lung bases: Clear. Visualized heart and pericardium: Unremarkable. Liver: Enlarged. Gallbladder: Unremarkable. Spleen: Unremarkable. Pancreas: Unremarkable. Adrenal glands: Unremarkable. Kidneys: Right kidney- No hydronephrosis. No renal stones. Left kidney- No hydronephrosis. No renal stones. Distal esophagus/stomach: Unremarkable. Small bowel loops: Normal caliber and wall thickness. Colon: Diverticula. Wall thickening transverse segment. Appendix not seen. Nodes: No enlarged nodes. Peritoneum: No ascites. No free intraperitoneal air. Urinary bladder: Unremarkable. Uterus: Unremarkable. Adnexa: No masses. Bones: No acute bony abnormality. Soft tissues: Unremarkable. Unopacified abdominal aorta: No aneurysmal dilatation. Atherosclerotic disease. IMPRESSION: 1. Colitis of transverse colon, likely infectious or inflammatory. Recommend colonoscopy to exclude underlying lesion. 2. No renal stones or hydronephrosis. Reviewed, dictated and finalized at location R. L SEWER IMPRESSION: 1. Colitis of transverse colon, likely infectious or inflammatory. Recommend c olonoscopy to exclude underlying lesion. 2. No renal stones or hydronephrosis.
[2025-09-04 03:43] VITALS: BP 153/69; PULSE 68; RESP 18; TEMP 36.8; O2SAT 100
[2025-09-04 06:03] LABS: Add Urine Microscopic? NO; Appearance Urine Clear (Clear); Glucose Urine UA Negative (Negative); Leukocyte Esterase Ur Negative LEU/UL (Negative); Nitrate Urine Negative (Negative); Specific Grav Ur 1.014 (1.001-1.035)
--- NOTE | 2025-09-04 07:32 | ED.ABDPAIN ---
HPI - Abdominal Pain General Chief Complaint: Abdominal Pain Stated Complaint: abd pain Time Seen by Provider: 09/04/25 07:01 History of Present Illness HPI narrative: Since , patient has pain to her right back that seems to go to her groin, feels like kidney stone, worse with urination. Associated with some nausea vomiting. Related Data Home Medications ?Medication ?Instructions ?Recorded ?Confirmed ?Last Taken ?Type docusate sodium 50 mg capsule 50 mg PO DAILY 07/25/24 06/04/25 08/06/24 History mecobalamin (vitamin B12) 500 mcg mcg PO 06/04/25 06/04/25 Unknown History chewable tablet Allergies Allergy/AdvReac Type Severity Reaction Status Date / Time No Known Allergies Allergy Verified 09/04/25 03:45 Review of Systems Review of Systems: All systems reviewed & are unremarkable except as noted in HPI and below PMFSH Past Medical History Medical History History of stress test (~2020) Colon cancer screening Depression TIA (transient ischemic attack) Grade II diastolic dysfunction Screening for breast cancer Chronic pruritic rash in adult Urolithiasis Hypothyroidism Anxiety Surgical History Surgical History History of urologic surgery Kidney Stone Removed History of tooth extraction History of tubal ligation History of x2 H/O left wrist surgery History of appendectomy Family History Family History Mother Lung cancer Sibling Bone cancer Heart disease History of hip replacement History of knee replacement Father Heart disease Social History Social History Social History: Smoking status: Never smoker Second hand tobacco smoke exposure: No Alcohol intake: never Substance use: never Substance use type: does not use Lack of Transportation: No Lack of Food: Never True Current Housing: I Have Housing Concerned About Future Housing: No Difficulty Paying Gas/Electric Bills: No Difficulty Paying for Meds: No Currently Unemployed: No Education: Bachelor's Degree Difficulty w/ Childcare or Family Care: No Living arrangements: with family Additional living arrangements comments: Pt lives with her daughter and her son in law. Occupation/Education: retired Gender identity (if verbalized by the patient): Female Sexual Orientation (if Verbalized by the Patient): Straight or Heterosexual Spiritual care concerns: No Exam Narrative: EXAMINATION OF ORGAN SYSTEMS/BODY AREAS: Constitutional: Vital signs per nursing GENERAL: Appears uncomfortable HEAD: Normal with no signs of head trauma. EYES: EOMI, conjunctiva normal ENT: Hearing grossly intact LUNGS: Nonlabored breathing. HEART: [Regular rate and rhythm] ABD: [Soft], some right flank and lower abdominal tenderness EXT: Normal range of motion SKIN: [No rashes or lesions.] NEURO: [Alert and oriented x 3. No gross focal sensory or strength deficits.] PSYCH: Normal affect Course Vital Signs Vital signs: Vital Signs Temperature 98.2 F 09/04/25 03:43 Pulse Rate 68 09/04/25 03:43 Respiratory Rate 18 09/04/25 03:43 Blood Pressure 153/69 H 09/04/25 03:43 Pulse Oximetry 100 09/04/25 03:43 Oxygen Delivery Room Air 09/04/25 03:43 Temperature 98.2 F 09/04/25 03:43 Pulse Rate 58 L 09/04/25 08:49 Respiratory Rate 16 09/04/25 08:49 Blood Pressure 121/77 09/04/25 08:49 Pulse Oximetry 96 09/04/25 08:49 Oxygen Delivery Room Air 09/04/25 03:43 MDM - Abdominal Pain MDM Narrative Medical decision making narrative: Electronic medical record was reviewed. Patient presented to the ED with complaint of [right flank pain and vomiting]. Vitals [were within acceptable limits]. Physical exam revealed [tenderness to palpation in right lower abdomen/flank]. Based on the patient's history and physical exam, my differential includes but is not limited to nephrolithiasis, appendicitis, pyelonephritis. [IV access was established by nursing staff. Patient was given zofran, morphine]. CBC, BMP, lipase, LFTs, bilirubin and alk phos were obtained. Labs were pertinent for normal labs including urinalysis, white blood cell count, only minimally elevated AST. [Decision was made to obtain a CT-abdomen to evaluate for acute abdominal process. CT-abdomen per radiology interpretation shows colitis.] On reevaluation, the patient states that they are feeling much better. There were no witnessed episodes of vomiting in the emergency department. They are not complaining of any new abdominal pain. Repeat examination did not show any significant guarding or rebound. No new tenderness. I did offer potential admission, which patient declined as she would rather go home, try taking some pain medication, she would prefer to avoid opiates if possible so I will give Bentyl, she can continue taking Tylenol, and a few doses of oxycodone as needed. I will have her follow-up with gastroenterology though she has had a clean colonoscopy and very recently. The patient was given strict return precautions, if they are to develop any worsening abdominal pain, vomiting, or blood in the vomit they are to return to the emergency department immediately. Patient verbally acknowledges understanding these directions. [The patient was informed of the above diagnostic test findings.] The patient feels that this is appropriate medical decision making and verbalizes an understanding of the discharge instructions. Lab Data 09/04/25 07:30 09/04/25 07:30 Labs: Lab Results 09/04/25 09/04/25 Range/Units 05:56 07:30 WBC 5.6 (4.5-10.0) K/mm3 RBC 4.45 (4.2-5.4) M/mm3 Hgb 14.5 (12.0-15.0) g/dL Hct 42.5 (37.0-47.0) % MCV 95.5 (80-100) fl MCH 32.6 (26-34) pg MCHC 34.1 (32-36) g/dl RDW 12.3 (11.5-14.5) % Plt Count 273 (150-375) k/mm3 MPV 9.5 (7.4-10.4) fl Immature Gran % (Auto) 0.2 (0-0.5) % Neut % (Auto) 60.7 (45.5-73.1) % Lymph % (Auto) 31.5 (18.3-44.2) % [place] % (Auto) 6.5 (2.6-8.5) % Eos % (Auto) 0.4 (0-4.4) % Baso % (Auto) 0.7 (0.2-1.2) % Lymph # (Auto) 1.75 (0.9-3.2) K/mm3 [place] # (Auto) 0.4 (0.1-0.6) K/mm3 Eos # (Auto) 0.0 (0-0.3) K/mm3 Baso # (Auto) 0.0 (0.0-0.1) K/mm3 Abs Immat Gran (auto) 0.01 (0.00-0.031) K/mm3 Absolute Neuts (auto) 3.4 (1.3-6.7) K/mm3 Absolute Nucleated RBC 0.000 (0.0-0.012) K/mm3 Nucleated RBC % 0.0 (0.0-0.2) % Sodium 139 (137-145) mmol/L Potassium 3.5 (3.4-5.0) mmol/L Chloride 108 H (98-107) mmol/L Carbon Dioxide 28 (22-30) mmol/L Anion Gap 3 L (4-12) mmol/L BUN 8 (7-17) mg/dL Creatinine 0.65 L (0.7-1.0) mg/dL Estim Creat Clear Calc 51 ml/min Estimated GFR > 60 (59 - ) Glucose 91 (65-110) mg/dL Calcium 8.9 (8.4-10.2) mg/dL Total Bilirubin 0.5 (0.2-1.3) mg/dL AST 48 H (14-36) U/L ALT 32 (6-35) U/L Alkaline Phosphatase 104 (38-126) U/L Total Protein 7.0 (6.3-8.2) g/dL Albumin 4.1 (3.5-5.1) g/dL Lipase 98 (23-300) U/L Urine Color Yellow (Yellow) Urine Appearance Clear (Clear) Urine pH 5.5 (5.0-9.0) Ur Specific [place] 1.014 (1.001-1.035) Urine Protein Negative (Negative) mg/dL Urine Glucose (UA) Negative (Negative) mg/dL Urine Ketones Trace H (Negative) mg/dL Ur Blood (Man) Negative (Negative) Urine Nitrate Negative (Negative) Urine Bilirubin Negative (Negative) Urine Urobilinogen 0.2 (<2.0) mg/dL Leukocyte Esterase Rfl Negative (Negative) KIMBERLY/UL Imaging Data Radiologist's impression: ITS Impressions Abdomen/Pelvis CT 09/04/25 07:31 IMPRESSION: 1. Colitis of transverse colon, likely infectious or inflammatory. Recommend colonoscopy to exclude underlying lesion. 2. No renal stones or hydronephrosis. Discharge Plan Discharge Clinical Impression: Colitis Patient Disposition: Home Condition: Stable Instructions: Colitis (ED) Additional Instructions: Please follow up with your doctor and your chemical process operator; if you start having any worsening pain, nausea vomiting fevers or chills, please come back to the emergency room immediately. Patient Language: Singaporean Prescriptions: New dicyclomine 20 mg tablet 20 mg PO TID PRN (Reason: abdominal pain) Qty: 30 0RF ondansetron 4 mg tablet,disintegrating 4 mg PO Q8H PRN (Reason: nausea and vomiting) Qty: 10 0RF oxycodone 5 mg capsule 5 mg PO Q8H PRN (Reason: pain) Qty: 10 0RF No Action mecobalamin (vitamin B12) 500 mcg tablet,chewable PO levothyroxine 50 mcg tablet See Rx Instructions .ROUTE .COMPLEX Qty: 90 1RF Dose Instruction: Take 1 tablet by mouth once daily Rx Instructions: Take 1 tablet by mouth once daily Colace 50 mg Capsule 50 mg PO DAILY amlodipine 5 mg tablet See Rx Instructions .ROUTE .COMPLEX Qty: 30 5RF Dose Instruction: Take 1 tablet by mouth once daily Rx Instructions: Take 1 tablet by mouth once daily Follow-up/Referrals: Caden Batres MD [Physician, Family Practice]
[2025-09-04 07:34] VITALS: BP 150/89; PULSE 64; RESP 17; O2SAT 100
[2025-09-04 07:41] LABS: Hematocrit 42.5 % (37.0-47.0); Hemoglobin 14.5 g/dL (12.0-15.0); Immature Granulocyte Percent A 0.2 % (0-0.5); Lymphocytes Absolute Auto 1.75 K/mm3 (0.9-3.2); Mean Corpuscular HGB Conc 34.1 g/dl (32-36); Mean Corpuscular Hemoglobin 32.6 pg (26-34); Mean Corpuscular Volume 95.5 fl (80-100); Nucleated Red Blood Cells Absolute Auto 0.000 K/mm3 (0.0-0.012); Nucleated Red Blood Cells Perc 0.0 % (0.0-0.2); Platelet Count Result 273 k/mm3 (150-375); Red Blood Count 4.45 M/mm3 (4.2-5.4); White Blood Count 5.6 K/mm3 (4.5-10.0)
--- OUTSIDE RECORDS SUMMARY | 2025-09-04 07:41 | XMS_ITS | Clinical Summary ---
Author Organization [facility] Address [address] [place] [address] Care Team Providers Care Business Broker Name Role Phone Darlene Miller ADVERTISING MANAGER-CONSUMER MARKETING MANAGER Primary Care Provider Source Comments [facility],non-owned Affiliates and Associated Physician Practices is amultiple site organization consisting of ambulatory clinics and hospital sitesin [place], [place], [place] and [place]. This disclosure is being madepursuant to the Care Everywhere program and may not contain all information available regarding this patient. Last updated 18.[employer] Allergies No known active allergies Medications * [...] on file Legal Sex Female 8:40 AM VISUAL C DEVELOPER Gender Identity Not on file Sexual Orientation Not on file Last Filed Vital Signs Vital Sign Reading Time Taken Comments Blood Pressure 109/88 09/10/2012 4:20 PM VISUAL C DEVELOPER Pulse 77 09/10/2012 4:20 PM VISUAL C DEVELOPER Temperature 36.5 C (97.7 F) 09/10/2012 4:20 PM VISUAL C DEVELOPER Respiratory Rate 21 09/10/2012 4:20 PM VISUAL C DEVELOPER Oxygen Saturation 99% 09/10/2012 4:20 PM VISUAL C DEVELOPER Inhaled Oxygen Concentration - - Weight 58.1 kg (128 lb) 09/10/2012 1:39 PM VISUAL C DEVELOPER Height 157.5 cm (5' 2) 09/10/2012 1:39 PM VISUAL C DEVELOPER Body Mass Index 23.41 09/10/2012 1:39 PM VISUAL C DEVELOPER Plan of Treatment Health Maintenance Due Date [...] 2004 ZOSTER VACCINE (1 of 2) 2004 DEPRESSION SCREENING 11/01/2024 COVID-19 VACCINE (1 - 2023-2 5 season) 2025 INFLUENZA VACCINE (#1) 2025 Respiratory Syncytial Virus [...] age to complete this topic Insurance MEDICARE [facility] MEDICARE [facility] SELF PAY NO INSURANCE Member Subscriber Plan / Payer (Ef fective for All Dates) Name:Shade Helms Member ID:Not on file Relation to Subscriber:Not on file Name:SHADE HELMS Subscriber ID:Not on file (Home) Address: [address] [place] [id number] Payer ID:Not on file Group ID:Not on file Type:Self Pay Address: [place], [place] Care Teams Business Broker Relationship Specialty Start Date End Date Darlene Miller, ADVERTISING MANAGER-CONSUMER MARKETING MANAGER [address] [place] [phone] PCP - General 10/08/21
[2025-09-04] MEDS: ONDANSETRON INJ 4 MG/2 ML VIAL IV PUSH (07:51)
[2025-09-04] MEDS: MORPHINE SULFATE (*CRX) 4 MG/ML INJ 2 MG IV PUSH (07:51)
[2025-09-04 07:59] LABS: Alanine Aminotransferase 32 U/L (6-35); Albumin Level 4.1 g/dL (3.5-5.1); Alkaline Phosphatase 104 U/L (38-126); Anion Gap 3 mmol/L (4-12); Aspartate Amino Transferase 48 U/L (14-36); Bilirubin,Total 0.5 mg/dL (0.2-1.3); Blood Urea Nitrogen 8 mg/dL (7-17); Calcium 8.9 mg/dL (8.4-10.2); Carbon Dioxide 28 mmol/L (22-30); Chloride 108 mmol/L (98-107); Estimated CRCL calculation 51 ml/min; Estimated Glomerular Filt Rate > 60; Glucose 91 mg/dL (65-110); Lipase 98 U/L (23-300); Potassium 3.5 mmol/L (3.4-5.0); Sodium 139 mmol/L (137-145); Total Protein 7.0 g/dL (6.3-8.2)
[2025-09-04 08:49] VITALS: BP 121/77; PULSE 58; RESP 16; O2SAT 96
== END 2025-09-04 08:57 | disposition home or self-care (01) ==
PROVIDERS: Student in an Organized Health Care Education/Training Program; Emergency Provider Emergency Medicine; PCP Physician Assistant
DX: K52.9 Noninfective gastroenteritis and colitis, unspecified (principal); I51.89 Other ill-defined heart diseases; E03.9 Hypothyroidism, unspecified; F32.A Depression, unspecified; F41.9 Anxiety disorder, unspecified; Z86.73 Personal history of transient ischemic attack (TIA), and cerebral infarction without residual deficits; Z87.442 Personal history of urinary calculi; Z79.899 Other long term (current) drug therapy
CPT/HCPCS: 36415; 74176; 80053; 81003; 83690; 85025; 96374; 96375; 99284; J2270; J2405

== ENCOUNTER 2025-10-15 08:29 | Outpatient (CLI) | payer MEDICARE, SELFPAY ==
--- NOTE | ~2025-10-15 | DEXA_ITS ---
Bone Density Report Name: SHADE HELMS Age: 70 Sex: Female Ethnicity: White Date of : 1955 Indication: postmenopausal osteoporosis; monitoring treatment; prior fracture; secondary osteoporosis; Referring Provider: MILES GU Study: Bone densitometry was performed. Exam Date: October 15, 2025 Accession number: [id number] Bone Density: Region BMD T-score Z-score Classification AP Spine(L1-L4) 0.734 -2.8 -0.7 Osteoporosis Femoral Neck (Left) 0.526 -2.9 -1.0 Osteoporosis Total Hip (Left) 0.598 -2.8 -1.2 Osteoporosis Femoral Neck (Right) 0.543 -2.8 -0.9 Osteoporosis Total Hip (Right) 0.646 -2.4 -0.9 Osteopenia Total Hip Mean 0.622 -2.6 -1.1 Osteoporosis World Health Organization criteria for BMD impression classify patients as: Normal (T-score at or above -1.0), Osteopenia (T-score between -1.0 and -2.5), or Osteoporosis (T-score at or below -2.5). 10-year Fracture Risk: FRAX not reported because: Some T-score for Spine Total or Hip Total or Femoral Neck at or below -2.5 Treated for osteoporosis Previous Exams: Region Exam Age BMD T-score BMD Change BMD Change Date g/cm2 vs Baseline vs Previous AP Spine (L1-L4) 10/15/2025 70 0.734 -2.8 0.008 (1.1%) 0.008 (1.1%) 03/17/2023 67 0.726 -2.9 Total Hip(Left) 10/15/2025 70 0.598 -2.8 0.006 (1.1%) 0.006 (1.1%) 03/17/2023 67 0.592 -2.9 Total Hip(Right) 10/15/2025 70 0.646 -2.4 -0.024 (-3.6%) -0.024 (-3.6%) 03/17/2023 67 0.670 -2.2 *Denotes significance at 95% confidence level, LSC for AP Spine = 0.022 g/cm2, LSC for Total Hip = 0.027 g/cm2 Clinical Information Provided by Patient: Has had a low trauma fracture Has secondary osteoporosis Is being treated for osteoporosis Patient maximum height was 62 Menopause Age: 53 No regular weight bearing exercise Does not regularly consume dairy products Onset of menses at age 12 Number of children 3 Impression: The patient has established osteoporosis, based on the Left Femoral Neck T-score and the existence of a prior fracture. The patient has risk factors, including: previous fracture. No significant bone loss was observed. Discussion: PATIENT UNDER TREATMENT WITH NO SIGNIFICANT BMD LOSS SINCE LAST EXAM. In an untreated patient, BMD typically declines with age. A lack of decline or gain is usually a sign that treatment is efficacious and fracture risk is reduced. It is important to ask patients whether they are taking their medications and to encourage continued and appropriate compliance with their osteoporosis therapies to reduce fracture risk. It is also important to review their risk factors and encourage appropriate calcium and vitamin D intakes, exercise, fall prevention and other lifestyle measures. Follow-Up: Consider a repeat BMD and Vertebral Fracture Assessment (VFA) exam in 2 years or sooner if medically necessary, to reassess this patient's status. Reported by: JESSIKA on 10/15/2025 9:20:00 AM. Reviewed, dictated and finalized at location A.
== END 2025-10-15 08:30 | disposition home or self-care (01) ==
LOC: ANHFOHIMG 08:31
PROVIDERS: PCP Physician Assistant; Visit Provider Student in an Organized Health Care Education/Training Program
DX: M81.0 Age-related osteoporosis without current pathological fracture (principal); M85.851 Other specified disorders of bone density and structure, right thigh
CPT/HCPCS: 77080

== ENCOUNTER 2025-10-17 10:17 | Outpatient (CLI) | payer MEDICARE, SELFPAY ==
--- NOTE | ~2025-10-17 | XR_ITS ---
EXAMINATION: XR abdomen/kub 1V, 10/17/2025 10:30 HONING MACHINE OPERATOR PRODUCTION HISTORY: constipation COMPARISON: No comparisons available. Technique: 3 view. Findings: Moderate fecal content, no dilated bowel loops No free air. No abnormal calcifications No acute osseous abnormality. Impression: 1. No acute abnormality. Reviewed, dictated and finalized at location P. NG MACHINE OPERATOR PRODUCTION Impression: 1. No acute abnormality.
--- OUTSIDE RECORDS SUMMARY | 2025-10-17 12:02 | XMS_ITS | Clinical Summary ---
Author Organization [facility] Address [facility] [place] [address] Care Team Providers Care Civil Cad Tech Name Role Phone Paul Darlene S RISK LEAD Primary Care Provider Social History Tobacco Use [...] Dexa Scan (General) 2019 Pneumococcal Vaccine: 50+ Years (2 of 2 - PCV20 or PCV21) 09/07/2021 09/07/2020 COVID-19 Vaccine ( - 2024- season) 2025 Influenza Adult (#1) 2025 09/07/2020, 09/06/2019, 08/26/2018, Additional history exists DTaP, Tdap and Td Vaccines (2 - Td or Tdap) 06/23/2026 06/23/2016 RSV Immunization or 60+ Years (1 - 1-dose 75+ series) 2029 Hepatitis A Vaccines Aged Out No long er eligible based on patient's age to complete this topic Meningococcal B Vaccine Aged Out No l onger eligible based on patient's age to complete this topic Meningococcal Vaccine Aged Out No rashid kyle eligible based on patient's age to complete this topic RSV Immunizations Under 20 Months Aged Out No longer eligible based on patient's age to complete this topic Insurance MEDICARE [facility] Care Teams Civil Cad Tech Relationship Specialty Start Date End Date Darlene Miller [place] [address] PCP - General NURSE PRACTITIONER 08/26/21
--- OUTSIDE RECORDS SUMMARY | 2025-10-17 12:02 | XMS_ITS | Clinical Summary ---
Author Organization [facility] [employer] Address [address] [place] [address] Care Team Providers Care Ratoprinter Name Role Phone Darlene Miller PATIENT ACCESS SPECIALIST-SUPERMARKET MANAGER Primary Care Provider Source Comments [facility] [employer],non-owned Affiliates and Associated Physician Practices is amultiple site organization consisting of ambulatory clinics and hospital sitesin [place], [place], [place] and [place]. This disclosure is being madepursuant to the Care Everywhere program and may not contain all information available regarding this patient. Last updated 18.[employer] Allergies No known active allergies Medications * [...] on file Legal Sex Female 8:40 AM ENTERTAINMENT MUSICIAN Gender Identity Not on file Sexual Orientation Not on file Last Filed Vital Signs Vital Sign Reading Time Taken Comments Blood Pressure 109/88 09/10/2012 4:20 PM ENTERTAINMENT MUSICIAN Pulse 77 09/10/2012 4:20 PM ENTERTAINMENT MUSICIAN Temperature 36.5 C (97.7 F) 09/10/2012 4:20 PM ENTERTAINMENT MUSICIAN Respiratory Rate 21 09/10/2012 4:20 PM ENTERTAINMENT MUSICIAN Oxygen Saturation 99% 09/10/2012 4:20 PM ENTERTAINMENT MUSICIAN Inhaled Oxygen Concentration - - Weight 58.1 kg (128 lb) 09/10/2012 1:39 PM ENTERTAINMENT MUSICIAN Height 157.5 cm (5' 2) 09/10/2012 1:39 PM ENTERTAINMENT MUSICIAN Body Mass Index 23.41 09/10/2012 1:39 PM ENTERTAINMENT MUSICIAN Plan of Treatment Health Maintenance Due Date [...] DEPRESSION SCREENING 11/01/2024 COVID-19 VACCINE (1 - 2024-2 6 season) 2025 INFLUENZA VACCINE (#1) 2025 Respiratory [...] age to complete this topic Insurance MEDICARE [facility] MEDICARE [facility] SELF PAY NO INSURANCE Member Subscriber Plan / Payer (Ef fective for All Dates) Name:Shade Helms Member ID:Not on file Relation to Subscriber:Not on file Name:SHADE HELMS Subscriber ID:Not on file (Home) Address: [address] [place] [phone] Payer ID:Not on file Group ID:Not on file Type:Self Pay Address: [place], [place] Care Teams Ratoprinter Relationship Specialty Start Date End Date Darlene Miller, PATIENT ACCESS SPECIALIST-SUPERMARKET MANAGER [address] [place] [phone] PCP - General 10/08/21
== END 2025-10-17 10:18 | disposition home or self-care (01) ==
PROVIDERS: PCP Physician Assistant; Visit Provider Nurse Practitioner
DX: K58.1 Irritable bowel syndrome with constipation (principal)
CPT/HCPCS: 74018